=== PATIENT | male | born 1935 | race Caucasian/White ===

== ENCOUNTER 2017-06-11 09:39 | Inpatient (IN) | payer MEDICARE, OTHER ==
[~2017-06-11] VITALS: Ht 160 cm; Wt 53.8 kg
[~2017-06-11 09:39] MED LIST: ARICEPT10 M1 PO; ATROVENT 0.02%2.5 ML; K-DUR20 ME1 PO; PROTONIX40 M1 PO; RANEXA500 MG PO; XOPENEX0.63 MG/3 IH; Z.0.FUROSEMIDE40 MG PO; Z.0.LISINOPRIL5 MG PO; Z.0.METOPROLOL SUCC2 PO; Z.0.NITROSTAT0.4 MG; Z.0.PLAVIX75 MG PO; Z.0.PREDNISONE20 MG PO; Z.0.SIMVASTATIN20 MG PO; Z.0.TENORMIN50 MG PO; Z.1.DOXYCYCLINE HY10 PO
[2017-06-11 09:57] LABS: BASOPHILS % 0.5 % (0.0-1.0); HEMOGLOBIN 12.6 g/dL (14.0-18.0); LYMPHOCYTES # (AUTO) 0.7 (1.0-3.2); LYMPHOCYTES % 10.7 % (18.0-39.1); MEAN CORPUSCULAR HEMOGLOBIN 31.7 pg (28-32); MEAN CORPUSCULAR HGB CONC 33.2 g/dL (31-35); MEAN CORPUSCULAR VOLUME 95.5 fL (81-99); MONOCYTES # (AUTO) 0.5 (0.2-0.8); MONOCYTES % 7.5 % (4.4-11.3); NEUTROPHILS % 80.8 % (38.7-80.0); PLATELET COUNT 230 x10e3/uL (140-360); RED BLOOD COUNT 3.98 x10e6/uL (4.3-5.7)
[2017-06-11 10:15] LABS: INR 1.1; PARTIAL THROMBOPLASTIN TIME 28.4 seconds (23.8-35.5); PROTHROMBIN TIME 13.4 seconds (11.9-14.5)
[2017-06-11 10:24] LABS: ALBUMIN 3.8 g/dL (3.5-5.0); ANION GAP 17.1 mmol/L (8-16); CALCIUM 9.3 mg/dL (8.4-10.2); CREATININE, SERUM 1.97 mg/dL (0.72-1.25); POTASSIUM 4.1 mmol/L (3.5-5.1)
[2017-06-11 10:26] LABS: CREATINE KINASE MB 5.3 ng/mL (0-5.0)
--- NOTE | 2017-06-11 11:02 | Diagnostic Imaging Report ---
EXAM: XR CHEST 2 VIEWS DATE: 06/11/2017 9:49 AM INDICATION: COMPARISON: 06/04/2015 FINDINGS: Lines and Tubes: None Heart and Mediastinum: The heart is not enlarged. Sternotomy wires and aortic vascular calcification stable. Lungs and Pleura: No pneumothorax. Ill-defined opacities left mid and lower lung and right lung base, not seen previous study. Bones and Soft Tissues: No acute findings. IMPRESSION: 1. Ill-defined opacities in the mid and lower lungs, asymmetric to the left, not seen previous study. Developing pneumonia should be considered. Follow-up recommended. Signed by: Dr. Bogdan Garcia MD on 06/11/2017 10:59 AM
[2017-06-11] MEDS ORDERED: SODIUM CHLORIDE 0.9% 1000ML 1,000 ML IV SCH (11:30)
--- OUTSIDE RECORDS SUMMARY | 2017-06-11 12:17 | XMS REPORT ---
Author Author [facility] Address Unknown Phone Unavailable Care Team Providers Care Optimization Manager Name Role Phone CHARITO HUA Unavailable Unavailable Problems This patient has no known problems. Allergies, Adverse Reactions, Alerts This patient has no known allergies or adverse reactions. Medications This patient has no known medications. Results Test Description Test Time Test Comments Text Results Atomic Results Result Comments CHEST 2 VIEWS [place] [address] Patient Name: TIMOTHY RODGERS MR #: [id number] : 1935 Age/Sex: 82/M Req #: [id number] Adm Physician: Ordered by: CHARITO HUA MD Report #: [id number] Location: ER Room/Bed: Procedure: [id number] DX/CHEST 2 VIEWS Exam Date: 06/11/17 Exam Time : 1041 REPORT STATUS: Signed EXAM: XR CHEST 2 VIEWS DATE: 2017 9:49 AM INDICATION: COMPARISON: 06/04/2015 FINDINGS: Lines and Tubes: None Heart and Mediastinum: The heart is not enlarged. Sternotomy wires and aortic vascular calcification stable. Lungs and Pleura: No pneumothorax. Ill-defined opacities left mid and lower lung and right lung base, not seen previous study. Bones and Soft Tissues: No acute findings. IMPRESSION: 1. Ill-defined opacities in the mid and lower lungs, asymmetric to the left, not seen previous study. Developing pneumonia should be considered. Follow-up recommended. Signed by: Dr. Bogdan Tatum MD on 06/11/2017 10:59 AM Dictated By: BOGDAN TATUM MD [id number] Transcribed By: JOSE on 06/11/17 1052 COPY TO: CHARITO HUA MD
[2017-06-11] MEDS: METHYLPREDNISOLONE SOD SUCC 40 MG/ML VIAL IV SCH ×2 (12:38→20:41)
[2017-06-11] MEDS: AZITHROMYCIN 250 MG TAB PO SCH (12:38)
[2017-06-11] MEDS: CEFTRIAXONE SOD 1 GM VIAL IV SCH (12:38)
[2017-06-11] MEDS: ALBUTEROL/IPRATROPIUM 3 ML NEB NEB SCH ×3 (13:00→18:40)
[2017-06-11 13:47] VITALS: BP 121/80
[2017-06-11] MEDS ORDERED: ASPIRIN325 MG PO (13:52)
[2017-06-11] MEDS ORDERED: NITROGLYCERIN 0.4 MG SUBL SL PRN (14:00)
[2017-06-11 14:16] VITALS: BP 121/80
[2017-06-11 15:40] VITALS: BP 128/74
[2017-06-11] MEDS: FUROSEMIDE 40 MG TAB PO SCH (17:00)
[2017-06-11] MEDS: RANOLAZINE 500 MG TABSR PO SCH (17:00)
[2017-06-11] MEDS: POTASSIUM CHLORIDE 20 MEQ TAB CR PO SCH (17:00)
[2017-06-11] MEDS: IPRATROPIUM BROMIDE 0.02% 2.5 ML NEB INH SCH (18:40)
[2017-06-11 19:04] LABS: CREATINE KINASE MB 5.1 ng/mL (0-5.0)
[2017-06-11 20:00] VITALS: BP 119/61
[2017-06-11 22:12] VITALS: BP 119/61
[2017-06-12] VITALS (8 sets, daily range): BP systolic 117–157; BP diastolic 69–94
[2017-06-12] MEDS: IPRATROPIUM BROMIDE 0.02% 2.5 ML NEB INH SCH ×3 (01:00→14:45)
[2017-06-12] MEDS: ALBUTEROL/IPRATROPIUM 3 ML NEB NEB SCH ×4 (01:00→19:30)
--- NOTE | 2017-06-12 02:41 | Consultation ---
DATE OF CONSULTATION: June 11, 2017 REASON FOR CONSULTATION: Shortness of breath. HPI: Mr. Lovell is an 82-year-old male who presented to the emergency room with worsening shortness of breath. Patient received IV steroids and IV antibiotic shot at Dr. Castano's office last week, but the symptoms did improving. He started having worsening shortness of breath. He decided to come to the emergency room. He denies any chest pain, nausea, vomiting, or diarrhea. During his previous admission in December of 2015, he was seen by Dr. Rodrigues, and his EF in May of 2015 was 35% to 40%. He has a history of coronary artery disease and COPD. He has almost a [id number] smoking history. Quit 10 years ago. REVIEW OF SYSTEMS GENERAL: Was having fever and chills. HEENT: Head: Denies any head trauma or head injury. Denies any earache, nosebleed, throat pain. CV: Denies any chest pain. RESPIRATORY: Shortness of breath. GI: Denies any nausea or vomiting. The rest of the review systems are negative except as in HPI. PAST MEDICAL HISTORY: COPD, coronary artery disease, hypertension, CABG, atrial fibrillation, CKD. PAST SURGICAL HISTORY: IA with PCI and CABG. FAMILY HISTORY: Positive for coronary artery disease. SOCIAL HISTORY: He quit smoking a year ago. Smoked for 55+ years. Denies any alcohol use. PHYSICAL EXAMINATION VITAL SIGNS: Temperature 97, pulse of 90, blood pressure 128/74, respiratory rate of 18, O2 sat 96% on 2 L SKIN: Warm and dry. GENERAL: He is an elderly male in mild respiratory distress. HEENT: Head is atraumatic and normocephalic. Pupils are reactive. NECK: Supple. CHEST: Markedly reduced air entry. HEART: S1 and S2 audible. ABDOMEN: Soft, nontender and nondistended. EXTREMITIES: No clubbing, cyanosis or edema. NEUROLOGICAL: Awake and alert. LABS: White count of 6000, hemoglobin 12.6 and platelets 230,000. Chemistry: Sodium 141, potassium 4.1 chloride 104, BUN 44, creatinine 1.9. AST and ALT normal. BNP 1189. Chest x-ray: I have reviewed the images. No focal infiltrate or hyperinflation. ASSESSMENT AND PLAN: Mr. Lovell is an 82-year-old male who presented with worsening shortness of breath, likely acute exacerbation of chronic obstructive pulmonary disease, possibility of acute decompensated heart failure as patient has a high BNP, and also has a history of heart failure. PLAN 1. Agree with IV Solu-Medrol. 2. Nebulizer treatment as ordered every 6 hours. 3. Continue the patient on Lasix 40 mg p.o. b.i.d. 4. Oxygen as needed to keep the O2 sat more than or equal to 92%. Job#: [id number] MARICARMEN
[2017-06-12] MEDS: METHYLPREDNISOLONE SOD SUCC 40 MG/ML VIAL IV SCH ×3 (06:02→16:28)
--- NOTE | 2017-06-12 06:59 | Diagnostic Imaging Report ---
EXAMINATION: CHEST SINGLE (PORTABLE) INDICATION: COPD. COMPARISON: 06/11/2017 and 06/04/2015 FINDINGS: TUBES and LINES: None. LUNGS: Hyperinflated lungs. Lungs are clear. There is mild prominence of the central pulmonary vasculature, consistent with pulmonary venous congestion. PLEURA: No pleural effusion or pneumothorax. HEART AND MEDIASTINUM: Cardiac size is moderately enlarged. There are atherosclerotic calcifications within the aorta. These findings are stable. Midline sternotomy wires consistent with prior CABG procedure BONES AND SOFT TISSUES: No acute osseous lesion. Soft tissues are unremarkable. UPPER ABDOMEN: No free air under the diaphragm. IMPRESSION: 1. Stable COPD. 2. Stable enlargement of the heart and central vascular congestion. Signed by: Dr. Danilo Sung M.D. on 06/12/2017 6:55 AM
[2017-06-12] MEDS ORDERED: PANTOPRAZOLE SODIUM 40 MG SUSPDR.PKT PO SCH (07:30)
[2017-06-12] MEDS: RANOLAZINE 500 MG TABSR PO SCH ×2 (07:45→16:29)
[2017-06-12] MEDS: ASPIRIN 325 MG TAB PO SCH (07:45)
[2017-06-12] MEDS: DONEPEZIL HCL 5 MG TAB PO SCH (07:45)
[2017-06-12] MEDS: PANTOPRAZOLE SOD 40 MG TABEC PO SCH (07:45)
[2017-06-12] MEDS: CLOPIDOGREL BISULFATE 75 MG TAB PO SCH (07:45)
[2017-06-12] MEDS: FUROSEMIDE 40 MG TAB PO SCH ×2 (07:45→16:28)
[2017-06-12] MEDS: POTASSIUM CHLORIDE 20 MEQ TAB CR PO SCH ×2 (07:45→16:28)
[2017-06-12] MEDS: METOPROLOL SUCCINATE 25 MG TAB XL PO SCH (07:46)
[2017-06-12 08:53] LABS: BASOPHILS % 0.1 % (0.0-1.0); HEMOGLOBIN 13.6 g/dL (14.0-18.0); LYMPHOCYTES # (AUTO) 0.5 (1.0-3.2); LYMPHOCYTES % 6.2 % (18.0-39.1); MEAN CORPUSCULAR HEMOGLOBIN 31.6 pg (28-32); MEAN CORPUSCULAR HGB CONC 33.2 g/dL (31-35); MEAN CORPUSCULAR VOLUME 95.3 fL (81-99); MONOCYTES # (AUTO) 0.1 (0.2-0.8); MONOCYTES % 1.8 % (4.4-11.3); NEUTROPHILS # (AUTO) 6.7 (2.1-6.9); NEUTROPHILS % 91.2 % (38.7-80.0); PLATELET COUNT 291 x10e3/uL (140-360); RED CELL DISTRIBUTION WIDTH 13.2 % (11.7-14.4)
[2017-06-12 09:13] LABS: ANION GAP 20.8 mmol/L (8-16); CALCIUM 9.7 mg/dL (8.4-10.2); CREATININE, SERUM 1.94 mg/dL (0.72-1.25); POTASSIUM 4.8 mmol/L (3.5-5.1)
[2017-06-12] MEDS: CEFTRIAXONE SOD 1 GM VIAL IV SCH (13:19)
[2017-06-12] MEDS: AZITHROMYCIN 250 MG TAB PO SCH (13:20)
[2017-06-12 14:04] LABS: CREATINE KINASE MB 9.3 ng/mL (0-5.0)
[2017-06-12 17:07] LABS: BAND NEUTROPHILS % (MANUAL) 1 %; LYMPHOCYTES % (MANUAL) 3 % (19-48); MONOCYTES % (MANUAL) 2 % (3.4-9.0); NEUTROPHILS % (MANUAL) 94 % (40-74)
[2017-06-12 17:09] LABS: PLATELET ESTIMATE ADEQUATE; PLATELET MORPHOLOGY COMMENT NORMAL
[2017-06-12 17:10] LABS: RBC MORPHOLOGY COMMENT NORMAL
--- NOTE | 2017-06-12 17:54 | Consultation ---
DATE OF CONSULTATION: June 12, 2017 REQUESTING PHYSICIAN: Dr. Casatno. REASON FOR CONSULTATION: CHF. HISTORY OF PRESENT ILLNESS: Mr. Lovell is an 82-year-old gentleman with past medical history as listed below who was brought in with complaints of shortness of breath. Patient reportedly became short of breath yesterday afternoon, which got pretty bad so the called 911 and he was brought to the hospital. He is short of breath at rest and on minimal exertion. Reportedly, he was seen at PCP's office this past , was given an antibiotic and steroid shot. He has some cough. No expectoration. No fever. Lot of the history is related by his who is at the bedside. REVIEW OF SYSTEMS CONSTITUTIONAL: Has fatigue and weakness. HEENT: No headache, blurry vision, seizures, or syncope. CARDIOVASCULAR: No chest pain. Had dyspnea. No orthopnea or PND. RESPIRATORY: Has cough. No expectoration or fever. GI: No abdominal pain, vomiting, or diarrhea. : No dysuria or frequency. ALLERGIES: No known drug allergies. MEDICATIONS: See list. PAST MEDICAL HISTORY 1. History of CAD and CABG. 2. History of COPD. 3. History of hypertension. 4. History of OH about 9 years back. 5. History of mild dementia. SOCIAL HISTORY: Does not smoke or drink. FAMILY HISTORY: Noncontributory. PHYSICAL EXAMINATION GENERAL: Moderately built and nourished gentleman, alert, oriented, not in any obvious distress. VITALS: Heart rate is 67, blood pressure 157/94, respiratory rate 16, and temperature 98.3. HEENT: Atraumatic. NECK: No JVD, bruit, thyromegaly, or lymphadenopathy. CARDIOVASCULAR: First and second heart sounds heard. A 2/6 systolic murmur heard at the left sternal border. CHEST: Decreased air entry at the bases. Midline surgical scar. ABDOMEN: Soft and nontender. EXTREMITIES: No edema. LABORATORY DATA: Sodium 141, potassium 4.8, chloride 103, bicarb 22, BUN is 44, creatinine 1.9, and glucose 130. Hemoglobin is 13.6, hematocrit is 41, platelets are 291, and white count is 7.3. BNP is 1189. IMPRESSION 1. Congestive heart failure. 2. Coronary artery disease, history of coronary artery bypass grafting. 3. Chronic obstructive pulmonary disease. 4. Hypertension. 5. Hyperlipidemia. PLAN 1. Continue with diuretics. 2. Patient is on antibiotics and steroids, can continue the same. 3. Patient's blood pressure is on the higher side; he is on metoprolol. We will continue to monitor. If it remains elevated, we will add additional medications. 4. Get echocardiogram to assess LV function and valvular function. 5. Further cardiac workup depending on clinical course. Discussed my impression, plan, and management with the patient and his . As always, I appreciate and thank you very much for referral. Job#: [id number] MACARENA
[2017-06-12] MEDS: SIMVASTATIN 20 MG TAB PO SCH (20:18)
[2017-06-13 00:20] VITALS: BP 125/80
[2017-06-13 04:00] VITALS: BP 112/63
[2017-06-13 07:32] LABS: CALCIUM 9.5 mg/dL (8.4-10.2); CHOL/HDL RATIO 3.7 (3.9-4.7); CREATININE, SERUM 2.22 mg/dL (0.72-1.25)
[2017-06-13] MEDS: ALBUTEROL/IPRATROPIUM 3 ML NEB NEB SCH ×4 (07:50→20:45)
[2017-06-13 08:33] VITALS: BP 121/76
[2017-06-13] MEDS: PANTOPRAZOLE SOD 40 MG TABEC PO SCH (08:59)
[2017-06-13] MEDS: METHYLPREDNISOLONE SOD SUCC 40 MG/ML VIAL IV SCH ×2 (08:59→17:18)
[2017-06-13] MEDS: DONEPEZIL HCL 5 MG TAB PO SCH (08:59)
[2017-06-13] MEDS: ASPIRIN 325 MG TAB PO SCH (08:59)
[2017-06-13] MEDS: POTASSIUM CHLORIDE 20 MEQ TAB CR PO SCH ×2 (09:00→17:18)
[2017-06-13] MEDS: FUROSEMIDE 40 MG TAB PO SCH ×2 (09:00→17:18)
[2017-06-13] MEDS: CLOPIDOGREL BISULFATE 75 MG TAB PO SCH (09:00)
[2017-06-13] MEDS: RANOLAZINE 500 MG TABSR PO SCH ×2 (09:00→17:18)
[2017-06-13] MEDS: METOPROLOL SUCCINATE 25 MG TAB XL PO SCH (09:00)
[2017-06-13] MEDS: CEFTRIAXONE SOD 1 GM VIAL IV SCH (11:59)
[2017-06-13] MEDS: AZITHROMYCIN 250 MG TAB PO SCH (11:59)
[2017-06-13 16:53] VITALS: BP 121/70
[2017-06-13 20:00] VITALS: BP 121/81
[2017-06-13] MEDS: SIMVASTATIN 20 MG TAB PO SCH (21:30)
[2017-06-13 22:15] VITALS: BP 121/81
[2017-06-14] VITALS: BP 119/63
[2017-06-14] MEDS: ALBUTEROL/IPRATROPIUM 3 ML NEB NEB SCH ×4 (01:00→19:15)
[2017-06-14 04:00] VITALS: BP 126/66
[2017-06-14 06:46] LABS: HEMATOCRIT 37.6 % (38.2-49.6); HEMOGLOBIN 12.7 g/dL (14.0-18.0); LYMPHOCYTES # (AUTO) 0.5 (1.0-3.2); LYMPHOCYTES % 4.9 % (18.0-39.1); MEAN CORPUSCULAR HEMOGLOBIN 31.5 pg (28-32); MEAN CORPUSCULAR HGB CONC 33.8 g/dL (31-35); MEAN CORPUSCULAR VOLUME 93.3 fL (81-99); MONOCYTES # (AUTO) 0.3 (0.2-0.8); MONOCYTES % 2.7 % (4.4-11.3); NEUTROPHILS # (AUTO) 8.4 (2.1-6.9); NEUTROPHILS % 91.2 % (38.7-80.0); PLATELET COUNT 254 x10e3/uL (140-360); RED BLOOD COUNT 4.03 x10e6/uL (4.3-5.7)
[2017-06-14 07:15] LABS: ANION GAP 18.6 mmol/L (8-16); CALCIUM 9.3 mg/dL (8.4-10.2); CREATININE, SERUM 2.2 mg/dL (0.72-1.25); MAGNESIUM 2.7 MG/DL (1.3-2.1); POTASSIUM 4.6 mmol/L (3.5-5.1)
[2017-06-14] MEDS: DONEPEZIL HCL 5 MG TAB PO SCH (08:34)
[2017-06-14] MEDS: METHYLPREDNISOLONE SOD SUCC 40 MG/ML VIAL IV SCH (08:34)
[2017-06-14] MEDS: PANTOPRAZOLE SOD 40 MG TABEC PO SCH (08:34)
[2017-06-14] MEDS: RANOLAZINE 500 MG TABSR PO SCH ×2 (08:35→16:51)
[2017-06-14] MEDS: METOPROLOL SUCCINATE 25 MG TAB XL PO SCH (08:35)
[2017-06-14] MEDS: POTASSIUM CHLORIDE 20 MEQ TAB CR PO SCH ×2 (08:35→16:51)
[2017-06-14] MEDS: ASPIRIN 325 MG TAB PO SCH (08:35)
[2017-06-14] MEDS: CLOPIDOGREL BISULFATE 75 MG TAB PO SCH (08:35)
[2017-06-14] MEDS: FUROSEMIDE 40 MG TAB PO SCH ×2 (08:35→16:51)
[2017-06-14 08:50] VITALS: BP 142/79
[2017-06-14] MEDS: CEFTRIAXONE SOD 1 GM VIAL IV SCH (11:31)
[2017-06-14] MEDS: AZITHROMYCIN 250 MG TAB PO SCH (11:31)
[2017-06-14 15:38] VITALS: BP 121/63
[2017-06-14 20:00] VITALS: BP 114/74
[2017-06-14] MEDS: SIMVASTATIN 20 MG TAB PO SCH (21:50)
[2017-06-14 22:33] VITALS: BP 121/63
[2017-06-15] VITALS: BP 107/59
[2017-06-15 04:00] VITALS: BP 116/69
[2017-06-15] MEDS: ALBUTEROL/IPRATROPIUM 3 ML NEB NEB SCH ×2 (07:00)
[2017-06-15 07:20] VITALS: BP 135/75
[2017-06-15] MEDS ORDERED: METHYLPREDNISOLONE SOD SUCC 40 MG/ML VIAL IV SCH (07:30)
[2017-06-15] MEDS: PANTOPRAZOLE SOD 40 MG TABEC PO SCH (07:45)
[2017-06-15 08:01] VITALS: BP 135/75
[2017-06-15] MEDS: RANOLAZINE 500 MG TABSR PO SCH (09:24)
[2017-06-15] MEDS: CLOPIDOGREL BISULFATE 75 MG TAB PO SCH (09:24)
[2017-06-15] MEDS: DONEPEZIL HCL 5 MG TAB PO SCH (09:24)
[2017-06-15] MEDS: METOPROLOL SUCCINATE 25 MG TAB XL PO SCH (09:24)
[2017-06-15] MEDS: FUROSEMIDE 40 MG TAB PO SCH (09:24)
[2017-06-15] MEDS: ASPIRIN 325 MG TAB PO SCH (09:24)
[2017-06-15] MEDS: POTASSIUM CHLORIDE 20 MEQ TAB CR PO SCH (09:24)
--- NOTE | 2017-07-31 09:08 | Discharge Summary ---
DISCHARGE DIAGNOSES: 1. Tsx-RN-aokqdqr-elevated myocardial infarction. 2. Acute on chronic systolic heart failure, ejection fraction 30%. 3. Chronic obstructive pulmonary disease. 4. Coronary artery disease. 5. Dementia. 6. Hypertension. 7. Atrial fibrillation. HISTORY OF PRESENT ILLNESS AND HOSPITAL COURSE: See hospital chart for full details. The patient is an elderly gentleman who presented with chest pain and was found to have a dfy-SJ-uxvvnuy-elevated AL as well as acute on chronic CHF, who was brought in, was optimized with medical management. He was seen by Cardiology. Please see their note for full details. 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 Please see hospital chart for full details. CARLOS ALBERTO PEARCE MD Job#: [id number] EV
== END 2017-06-15 11:00 | disposition home or self-care (01) | DRG 291 ==
LOC: ER 09:39 → ERHOLD 12:14 → MED/SURG3 12:16
PROVIDERS: ADMIT Internal Medicine; ATTEND Internal Medicine
DX: I13.0 Hypertensive heart and chronic kidney disease with heart failure and stage 1 through stage 4 chronic kidney disease, or unspecified chronic kidney disease (principal); I50.23 Acute on chronic systolic (congestive) heart failure; J44.1 Chronic obstructive pulmonary disease with (acute) exacerbation; N18.9 Chronic kidney disease, unspecified; R09.02 Hypoxemia; I25.10 Atherosclerotic heart disease of native coronary artery without angina pectoris; Z95.1 Presence of aortocoronary bypass graft; I25.2 Old myocardial infarction; E78.5 Hyperlipidemia, unspecified; I48.91 Unspecified atrial fibrillation; Z87.891 Personal history of nicotine dependence
CPT/HCPCS: 36415; 71045; 71046; 80048; 80053; 80061; 82550; 82553; 83036; 83735; 83880; 84484; 85025; 85610; 85730; 93005; 93306; 94640; 97139; 99285; J0696; J2920; J7030

== ENCOUNTER 2017-06-27 03:55 | Inpatient (IN) | payer MEDICARE ==
[~2017-06-27] VITALS: Ht 160 cm; Wt 54.0 kg
[~2017-06-27 03:55] MED LIST changes: +ASPIRIN325 MG PO
--- OUTSIDE RECORDS SUMMARY | 2017-06-27 03:57 | XMS REPORT | Continuity of Care Document ---
Author Author [facility] Organization [facility] Address [address] [place] [address] Phone Unavailable Care Team Providers Care Tying In Machine Operator Name Role Phone CARLOS ALBERTO PEARCE MD PCP Insurance Providers Guarantor Timothy Rodgers Address [address] [place] [address] Email [email or web address] Payer [facility] Policy Number [id number] Subscriber's Name Timothy Rodgers Relationship 18 Self / Same As Patient Group Number [id number] Group Name RETIRED Effective Date 17 Advance Directives Directive Response Recorded Date/Time Does the patient have an advance directive? No 06/11/17 1:42pm If yes, is advance directive on file with [facility]? No 06/11/17 1:42pm If not on file with [facility] will patient provide a copy? No 06/11/17 1:42pm Do you have a Directive to Physician? No 06/11/17 9:42am Do you have a Medical Power of In Flight Refueling Craftsman? No 06/11/17 9:42am Do you have an out of hospital Do Not Resuscitate Order? No 06/11/17 9:42am Do you have any special needs we should be aware of? No 06/11/17 9:42am Do you have a support person here with you today? Yes 06/11/17 9:42am Did patient receive Notice of Privacy Practices? Yes 06/11/17 9:42am Did patient receive patient rights and responsibilities? Yes 06/11/17 9:42am Problems Medical Problem Onset Date Status Bradyarrhythmia 2016 Acute Chest pain 2016 Acute Pneumonia 06/02/2015 Acute Sick sinus syndrome 2016 Acute Medications Current Home Medications Medication Dose Units Route Directions Days Qty Instructions Start Date Aspirin 325 Mg Tablet 325 Mg Oral Daily 30 Tab Clopidogrel Bisulfate (Plavix) 75 Mg Tablet 75 Mg Oral Daily Donepezil Hcl (Aricept) 10 Mg Tablet 10 Mg Oral Daily Furosemide 40 Mg Tablet 40 Mg Oral Twice A Day Ipratropium [place] (Atrovent 0.02% Neb) 2.5 Ml Soln Every 6 Hours Metoprolol Succinate 25 Mg Tab.sr.24h 25 Mg Oral Daily Nitroglycerin (Nitrostat) 0.4 Mg Tab.subl As Directed Pantoprazole Sodium (Protonix) 40 Mg Suspdr.pkt 40 Mg Oral Daily Potassium Chloride (K-Dur) 20 Meq Tabcr 20 Meq Oral Twice A Day Ranolazine (Ranexa) 500 Mg Tabsr 500 Mg Oral Twice A Day 60 Tab Simvastatin 20 Mg Tablet 20 Mg Oral Daily Past Home Medications Medication Directions Ordered Status Levalbuterol Hcl (Xopenex) 0.63 Mg/3 Ml Vial.neb, Inhalation As Needed Discontinued Lisinopril 5 Mg Tablet, 5 Mg Oral Daily Discontinued Social History Social History Problem Response Recorded Date/Time Onset Date Status Hx Psychiatric Problems No 06/11/2017 1:42pm Not Applicable Not Applicable Hx Eating Disorder No 06/11/2017 1:42pm Not Applicable Not Applicable Hx Substance Use Disorder No 06/11/2017 1:42pm Not Applicable Not Applicable Hx Depression No 06/11/2017 1:42pm Not Applicable Not Applicable Hx Alcohol Use No 06/11/2017 1:42pm Not Applicable Not Applicable Hx Substance Use Treatment No 06/11/2017 1:42pm Not Applicable Not Applicable Hx Physical Abuse No 06/11/2017 1:42pm Not Applicable Not Applicable Smoking Status Start Date Stop Date Former smoker Hospital Discharge Instructions No hospital discharge instruction information available. Plan of Care Discharge Date 06/15/17 11:00am Disposition HOME, SELF-CARE Instructions/Education Provided Pneumonia - Bacterial Prescriptions See Medication Section Additional Instructions/Education LOW SALT DIET AND FOLLOW UP IN [address] PEARCE ACTIVITY TOLERATED FOLLOW UP IN 1-[address] MCNAIR AT [phone] Functional Status Query Response Date Recorded FUNCTIONAL STATUS ` June 11, 2017 3:03pm Assistive Devices None June 11, 2017 2:16pm Ambulation Ability Independent June 11, 2017 2:16pm Toileting Ability Independent June 15, 2017 9:24am Allergies, Adverse Reactions, Alerts Allergen Type Severity Reaction Status Last Updated No Known Drug Allergies Allergy Unknown Active 06/12/08 Immunizations No immunization information available. Vital Signs Acute Vital Signs Vital Response Date/Time Temperature (Fahrenheit) 97.0 degrees F (97.6 - 99.5) 06/15/2017 8:01am Pulse Pulse Rate (adult) 69 bpm (60 - 90) 06/15/2017 8:35am Respiratory Rate 18 bpm (12 - 24) 06/15/2017 8:35am Blood Pressure 135/75 mm Hg 06/15/2017 8:01am Height 5 ft 3 in 06/11/2017 1:49pm Weight 118.50 lb 06/15/2017 12:00am Body Mass Index 21.0 kg/m^2 06/15/2017 12:00am Results Laboratory Results Test Name Result Units Flags Reference Collection Date/Time Result Date/ Time Comments White Blood Count 9.22 x10e3/uL 4.8-10.8 06/14/2017 6:21am 06/14/2017 6 :48am Red Blood Count 4.03 x10e6/uL L 4.3-5.7 06/14/2017 6:21am 06/14/2017 6: 48am Hemoglobin 12.7 g/dL L 14.0-18.0 06/14/2017 6:21am 06/14/2017 6:48am Hematocrit 37.6 % L 38.2-49.6 06/14/2017 6:21am 06/14/2017 6:48am Mean Corpuscular Volume 93.3 fL 81-99 06/14/2017 6:06/14/2017 6: 48am Mean Corpuscular Hemoglobin 31.5 pg 28-32 06/14/2017 6:06/14/2017 6:48am Mean Corpuscular Hemoglobin Concent 33.8 g/dL 31-35 06/14/2017 6:06/14/2017 6:48am Red Cell Distribution Width 13.0 % 11.7-14.4 06/14/2017 6:2017 6:48am Platelet Count 254 x10e3/uL 140-360 06/14/2017 6:06/14/2017 6: 48am Neutrophils (%) (Auto) 91.2 % H 38.7-80.0 06/14/2017 6:06/14/2017 6 :48am Lymphocytes (%) (Auto) 4.9 % L 18.0-39.1 06/14/2017 6:06/14/2017 6: 48am Monocytes (%) (Auto) 2.7 % L 4.4-11.3 06/14/2017 6:06/14/2017 6: 48am Eosinophils (%) (Auto) 0.0 % 0.0-6.0 06/14/2017 6:06/14/2017 6: 48am Basophils (%) (Auto) 0.0 % 0.0-1.0 06/14/2017 6:06/14/2017 6:48am IM GRANULOCYTES % 1.2 % H 0.0-1.0 06/14/2017 6:06/14/2017 6:48am Neutrophils # (Auto) 8.4 H 2.1-6.9 06/14/2017 6:06/14/2017 6: 48am Lymphocytes # (Auto) 0.5 L 1.0-3.2 06/14/2017 6:06/14/2017 6: 48am Monocytes # (Auto) 0.3 0.2-0.8 06/14/2017 6:06/14/2017 6:48am Eosinophils # (Auto) 0.0 0.0-0.4 06/14/2017 6:06/14/2017 6:48am Basophils # (Auto) 0.0 0.0-0.1 06/14/2017 6:06/14/2017 6:48am Absolute Immature Granulocyte (auto 0.11 x10e3/uL H 0-0.1 06/14/2017 6: 06/14/2017 6:48am Differential Total Cells Counted 100 06/12/2017 7:06/12/2017 5 :10pm Neutrophils % (Manual) 94 % H 40-74 06/12/2017 7:06/12/2017 5:10pm Band Neutrophils % 1 % 06/12/2017 7:06/12/2017 5:10pm Lymphocytes % (Manual) 3 % L 19-48 06/12/2017 7:06/12/2017 5:10pm Monocytes % (Manual) 2 % L 3.4-9.0 06/12/2017 7:06/12/2017 5:10pm Platelet Estimate ADEQUATE 06/12/2017 7:06/12/2017 5:10pm Platelet Morphology Comment NORMAL 06/12/2017 7:06/12/2017 5: 10pm Red Cell Morphology Comment NORMAL 06/12/2017 7:06/12/2017 5: 10pm Prothrombin Time 13.4 seconds 11.9-14.5 06/11/2017 9:4006/11/2017 10 :19am Prothromb Time International Ratio 1.10 06/11/2017 9:402017 10:19am Oral Anticoagulant Therapy INR Values: 1. Low Intensity Therapy 1.5 - 2.0 2. Moderate Intensity Therapy 2.0 - 3.0 3. High Intensity Therapy(1) 2.5 - 3.5 4. High Intensity Therapy(2) 3.0 - 4.0 5. Panic Value INR > 5.0 Activated Partial Thromboplast Time 28.4 seconds 23.8-35.5 06/11/2017 9: 4006/11/2017 10:19am Sodium Level 140 mmol/L 136-145 06/14/2017 6:06/14/2017 7:20am Potassium Level 4.6 mmol/L 3.5-5.1 06/14/2017 6:06/14/2017 7:20am Chloride Level 103 mmol/L 98-107 06/14/2017 6:06/14/2017 7:20am Carbon Dioxide Level 23 mmol/L 22-29 06/14/2017 6:06/14/2017 7: 20am Anion Gap 18.6 mmol/L H 8-16 06/14/2017 6:06/14/2017 7:20am Blood Urea Nitrogen 74 mg/dL H 7-06/14/2017 6:06/14/2017 7:20am Creatinine 2.20 mg/dL H 0.72-1.25 06/14/2017 6:06/14/2017 7:20am BUN/Creatinine Ratio 34 H 6-06/14/2017 6:06/14/2017 7:20am Estimat Glomerular Filtration Rate 29 ML/MIN L 60- 06/14/2017 6: 7:20am Ranges were taken from the National Kidney Disease Education Program and the National Kidney Foundation literature. Reference ranges: 60 or greater: Normal 16-59 (for 3 consecutive months): Chronic kidney disease 15 or less: Kidney failure Glucose Level 107 mg/dL 74-118 06/14/2017 6:06/14/2017 7:20am Calcium Level 9.3 mg/dL 8.4-10.2 06/14/2017 6:06/14/2017 7:20am Hemoglobin A1c Percent 5.0 % 4.0-7.0 06/13/2017 6:31am 06/13/2017 7: 19am Magnesium Level 2.7 MG/DL H 1.3-2.1 06/14/2017 6:06/14/2017 7:20am Total Bilirubin 0.3 mg/dL 0.2-1.2 06/11/2017 9:40am 06/11/2017 10:32am Aspartate Amino Transf (AST/SGOT) 21 IU/L 5-34 06/11/2017 9:40am 2017 10:32am Alanine Aminotransferase (ALT/SGPT) 12 IU/L 0-55 06/11/2017 9:40am 10:32am Total Protein 7.5 g/dL 6.5-8.1 06/11/2017 9:40am 06/11/2017 10:32am Albumin 3.8 g/dL 3.5-5.0 06/11/2017 9:40am 06/11/2017 10:32am Globulin 3.7 g/dL H 2.3-3.5 06/11/2017 9:40am 06/11/2017 10:32am Albumin/Globulin Ratio 1.0 0.8-2.0 06/11/2017 9:40am 06/11/2017 10: 32am Alkaline Phosphatase 87 IU/L 40-150 06/11/2017 9:40am 06/11/2017 10: 32am Triglycerides Level 90 MG/DL 0-149 06/13/2017 6:31am 06/13/2017 7:32am Cholesterol Level 142 MD/DL 0-199 06/13/2017 6:31am 06/13/2017 7:32am Less than 200 mg/dL Low Risk 201 - 239 mg/dL Borderline Risk 240 mg/dl and greater High Risk LDL Cholesterol 86 MG/DL 60-130 06/13/2017 6:31am 06/13/2017 7:32am HDL Cholesterol 38 MG/DL L 40-60 06/13/2017 6:31am 06/13/2017 7:32am Cholesterol/HDL Ratio 3.7 L 3.9-4.7 06/13/2017 6:31am 06/13/2017 7: 32am B-Type Natriuretic Peptide 1189.8 pg/mL H 0-100 06/11/2017 9:40am 2017 10:37am Creatine Kinase 127 IU/L 30-200 06/12/2017 7:22am 06/12/2017 2:02pm Creatine Kinase MB 9.30 ng/mL H 0-5.0 06/12/2017 7:22am 06/12/2017 2: 06pm Troponin I 0.653 ng/mL H 0-0.300 06/12/2017 7:22am 06/12/2017 2:06pm Procedures Procedure Status Date Provider(s) X-ray of chest, two views Active 06/11/17 CHARITO HUA MD Encounters Encounter Location Arrival/Admit Date Discharge/Depart Date Attending Provider Discharged Inpatient [facility] 06/11/17 12:14pm 11:00am CARLOS ALBERTO PEARCE MD
[2017-06-27] MEDS ORDERED: MYBETRIC PO (04:13)
[2017-06-27] MEDS ORDERED: ALLOPURINOL300 MG PO (04:13)
[2017-06-27 04:20] LABS: BASOPHILS # (AUTO) 0.1 (0.0-0.1); BASOPHILS % 0.5 % (0.0-1.0); EOSINOPHILS # (AUTO) 0.2 (0.0-0.4); EOSINOPHILS % 1.7 % (0.0-6.0); HEMATOCRIT 38.2 % (38.2-49.6); HEMOGLOBIN 12.4 g/dL (14.0-18.0); LYMPHOCYTES # (AUTO) 1.3 (1.0-3.2); LYMPHOCYTES % 13.6 % (18.0-39.1); MEAN CORPUSCULAR HGB CONC 32.5 g/dL (31-35); MEAN CORPUSCULAR VOLUME 95.5 fL (81-99); MONOCYTES # (AUTO) 0.4 (0.2-0.8); MONOCYTES % 4.1 % (4.4-11.3); NEUTROPHILS # (AUTO) 7.6 (2.1-6.9); NEUTROPHILS % 79.7 % (38.7-80.0); PLATELET COUNT 228 x10e3/uL (140-360)
[2017-06-27 04:24] LABS: PROTHROMBIN TIME 12.4 seconds (11.9-14.5)
[2017-06-27 04:24] LABS: BILIRUBIN,URINE NEGATIVE (NEGATIVE); KETONES,URINE NEGATIVE (NEGATIVE); LEUKOCYTE ESTERASE ,URINE NEGATIVE (NEGATIVE); NITRITE,URINE NEGATIVE (NEGATIVE); PROTEIN,URINE DIPSTICK NEGATIVE (NEGATIVE); URINE UROBILINOGEN 0.2 mg/dL (0.2 - 1)
[2017-06-27 04:25] LABS: PARTIAL THROMBOPLASTIN TIME 20.3 seconds (23.8-35.5)
[2017-06-27 04:27] LABS: CLARITY,URINE CLEAR (CLEAR); COLOR,URINE YELLOW (YELLOW)
[2017-06-27 04:34] LABS: ALBUMIN 3.1 g/dL (3.5-5.0); ALBUMIN/GLOBULIN RATIO 0.8 (0.8-2.0); ANION GAP 16.9 mmol/L (8-16); CALCIUM 8.7 mg/dL (8.4-10.2); CREATININE, SERUM 1.91 mg/dL (0.72-1.25); MAGNESIUM 2.2 MG/DL (1.3-2.1); POTASSIUM 4.9 mmol/L (3.5-5.1)
[2017-06-27 04:35] LABS: WBC,URINE (MAN) 0-5 /HPF (0-5)
[2017-06-27 04:36] LABS: EPITHELIAL CELLS,URINE RARE /LPF; RBC,URINE 0-5 /HPF (0-5)
[2017-06-27 04:41] LABS: CREATINE KINASE MB 26.8 ng/mL (0-5.0)
[2017-06-27 04:43] LABS: B-TYPE NATRIURETIC PEPTIDE2 1207.1 pg/mL (0-100)
[2017-06-27] MEDS ORDERED: ASPIRIN 81 MG CHEW TAB PO ONE (05:00)
[2017-06-27] MEDS ORDERED: HEPARIN SOD (PORCINE) 5,000 UNIT/ML VIAL IV ONE (05:15)
[2017-06-27] MEDS ORDERED: METHYLPREDNISOLONE SOD SUCC 125 MG/2ML VIAL IV STA (05:20)
[2017-06-27] MEDS: HEPARIN 25,000U/0.45% NS 250ML 700 UNIT in SODIUM CHLORIDE 0.9% 250ML 0 ML IV SCH (05:33)
[2017-06-27] MEDS ORDERED: NITROGLYCERIN 0.4 MG SUBL SL PRN (05:45)
[2017-06-27] MEDS ORDERED: MORPHINE SULFATE 2 MG/ML SYR IV PRN (05:45)
[2017-06-27 06:15] VITALS: BP 132/87
[2017-06-27] MEDS: ONDANSETRON HCL INJ 2 MG/ML VIAL IV PRN (06:20)
[2017-06-27 06:43] VITALS: BP 132/87
--- NOTE | 2017-06-27 06:44 | Diagnostic Imaging Report ---
EXAMINATION: CHEST SINGLE (PORTABLE) INDICATION: Shortness of breath COMPARISON: 06/12/2017 FINDINGS: TUBES and LINES: None. LUNGS: Lungs are not well inflated. Mild interlobular septal thickening is present There is mild prominence of the central pulmonary vasculature, consistent with pulmonary venous congestion. PLEURA: No pleural effusion or pneumothorax. HEART AND MEDIASTINUM: Cardiac size is mildly enlarged. There are atherosclerotic calcifications within the aorta. Postsurgical changes related to prior CABG. Midline sternotomy wires are intact. BONES AND SOFT TISSUES: No acute osseous lesion. Soft tissues are unremarkable. UPPER ABDOMEN: No free air under the diaphragm. IMPRESSION: Findings are compatible with early cardiogenic pulmonary edema. Signed by: Dr. Danilo Sung M.D. on 06/27/2017 6:40 AM
[2017-06-27 08:11] VITALS: BP 144/78
[2017-06-27] MEDS ORDERED: FUROSEMIDE INJ 10 MG/ML 4 ML VIAL IV SCH ×2 (08:15)
[2017-06-27] MEDS: FUROSEMIDE INJ 10 MG/ML 4 ML VIAL IV SCH ×2 (08:32→21:25)
[2017-06-27] MEDS: FAMOTIDINE 20 MG/2 ML VIAL IV SCH ×2 (08:35→21:25)
[2017-06-27] MEDS: CLOPIDOGREL BISULFATE 75 MG TAB PO SCH (08:35)
[2017-06-27] MEDS: ASPIRIN 325 MG TAB EC PO SCH (08:35)
[2017-06-27] MEDS: METOPROLOL TARTRATE 25 MG TAB PO SCH ×3 (08:36→20:04)
--- NOTE | 2017-06-27 09:28 | Consultation ---
DATE OF CONSULTATION: June 27, 2017 CARDIOLOGY CONSULTATION REASON FOR CONSULT: Elevated troponin. HISTORY OF PRESENT ILLNESS: Mr. Lovell is an 82-year-old gentleman with a past medical history as listed below presented with complaints of shortness of breath. The patient reportedly became short of breath yesterday, which got progressively worse. He was brought to the hospital. The patient denies any chest pain or palpitations. No cough, fever or expectoration. The patient was recently admitted to the hospital with CHF and was discharged home. He was supposed to follow up with Dr. Sam Owusu. Apparently, he has not seen him as yet. REVIEW OF SYSTEMS CONSTITUTIONAL: Has some fatigue and weakness. HEENT: No headache, blurring of vision, seizures, or syncope. CARDIOVASCULAR: No chest pain. Had dyspnea. Has some orthopnea. No PND. RESPIRATORY: No cough, fever, expectoration. GI: No abdominal pain, vomiting, diarrhea. : No dysuria, frequency or incontinence. ALLERGIES: NO KNOWN DRUG ALLERGIES. MEDICATIONS: See list. PAST MEDICAL HISTORY: History of CAD, status post CABG, history of COPD, history of hypertension, history of MD about 9 years back, history of mild dementia, history of CHF. SOCIAL HISTORY: Does not smoke or drink. FAMILY HISTORY: Noncontributory. PHYSICAL EXAMINATION GENERAL: Moderately built and nourished gentleman awake, alert and not in any obvious distress. VITALS: Heart rate is 99, blood pressure 132/87, respiratory rate 18, temperature 97. HEENT: Atraumatic. NECK: No JVD, bruits, thyromegaly, or lymphadenopathy. CARDIOVASCULAR: First and 2nd heart sounds heard. No murmurs, rubs or gallops appreciated. CHEST: Decreased air entry at the bases. No adventitious sounds appreciated. Midline surgical scar. ABDOMEN: Soft and nontender. EXTREMITIES: No edema. LABS: Sodium is 137, potassium 4.9, chloride 105, bicarb 20, BUN 43, creatinine 1.9, glucose 100. Hemoglobin is 12.4, hematocrit 38.2 and platelets 228,000. White count is 9.5. EKG shows sinus tachycardia at 111 beats per minute, left axis deviation, right bundle branch block, PVCs, Q-waves in inferior leads, nonspecific ST-T changes. Chest x-ray findings compatible with early cardiogenic pulmonary edema. IMPRESSION 1. Congestive heart failure. 2. Kzt-NF-yyvjzsnko myocardial infarction. 3. Coronary artery disease with history of coronary artery bypass graft. 4. History of hypertension. 5. History of chronic obstructive pulmonary disease. 6. History of dementia. 7. Renal failure. PLAN 1. IV diuresis. 2. He had an echocardiogram done recently. Will review this report. 3. Start him on low-dose beta blockers. 4. He has been started on IV heparin. Can continue the same. 5. Diuretics have potentially worsened his renal failure, but he has congestion and is short of breath. 6. Discussed about possible cardiac catheterization. The patient and family at current time do not want it. 7. Continue with medical management for now. 8. No EDEN inhibitors due to renal failure. As always, I appreciate and thank you very much for this referral. Job#: [id number] MARICARMEN
[2017-06-27 10:30] LABS: CREATINE KINASE MB 75.2 ng/mL (0-5.0)
[2017-06-27] MEDS: LEVALBUTEROL HCL SOLN NEBU 0.63 MG/3 ML NEB INH PRN ×3 (10:30→20:15)
[2017-06-27] MEDS: IPRATROPIUM BROMIDE 0.02% 2.5 ML NEB NEB PRN ×3 (10:31→20:15)
[2017-06-27 12:03] VITALS: BP 104/64
[2017-06-27 16:16] VITALS: BP 114/65
[2017-06-27 19:37] LABS: CREATINE KINASE MB 76.8 ng/mL (0-5.0)
[2017-06-28] VITALS (8 sets, daily range): BP systolic 97–114; BP diastolic 49–66
[2017-06-28 06:25] LABS: BASOPHILS % 0.1 % (0.0-1.0); HEMATOCRIT 34.9 % (38.2-49.6); HEMOGLOBIN 11.6 g/dL (14.0-18.0); LYMPHOCYTES # (AUTO) 0.6 (1.0-3.2); LYMPHOCYTES % 6.3 % (18.0-39.1); MEAN CORPUSCULAR HEMOGLOBIN 31.5 pg (28-32); MEAN CORPUSCULAR HGB CONC 33.2 g/dL (31-35); MEAN CORPUSCULAR VOLUME 94.8 fL (81-99); MONOCYTES # (AUTO) 0.4 (0.2-0.8); NEUTROPHILS % 88.9 % (38.7-80.0); PLATELET COUNT 255 x10e3/uL (140-360); RED BLOOD COUNT 3.68 x10e6/uL (4.3-5.7); RED CELL DISTRIBUTION WIDTH 12.9 % (11.7-14.4)
[2017-06-28 06:49] LABS: CREATINE KINASE MB 56.9 ng/mL (0-5.0)
[2017-06-28 07:04] LABS: ALBUMIN 3.3 g/dL (3.5-5.0); ALBUMIN/GLOBULIN RATIO 0.9 (0.8-2.0); ANION GAP 16.1 mmol/L (8-16); CALCIUM 9.3 mg/dL (8.4-10.2); CHOL/HDL RATIO 3.1 (3.9-4.7); CREATININE, SERUM 1.96 mg/dL (0.72-1.25); POTASSIUM 5.1 mmol/L (3.5-5.1)
[2017-06-28] MEDS: FUROSEMIDE INJ 10 MG/ML 4 ML VIAL IV SCH (08:59)
[2017-06-28] MEDS: FAMOTIDINE 20 MG/2 ML VIAL IV SCH ×2 (08:59→21:32)
[2017-06-28] MEDS: ASPIRIN 325 MG TAB EC PO SCH (09:00)
[2017-06-28] MEDS: CLOPIDOGREL BISULFATE 75 MG TAB PO SCH (09:00)
[2017-06-28] MEDS: METOPROLOL TARTRATE 25 MG TAB PO SCH ×2 (09:01→18:38)
[2017-06-28] MEDS: NITROGLYCERIN 2% OINT 1 GM PKT TOP SCH ×2 (09:30→18:38)
[2017-06-28] MEDS ORDERED: SOD POLYSTYRENE SULFONATE SUSP 15 GM/60 ML BTL PO ONE (10:00)
[2017-06-28] MEDS ORDERED: ACETYLCYSTEINE 20% INHAL SOLN 30 ML VIAL PO SCH (10:07)
[2017-06-28] MEDS: SODIUM CHLORIDE 0.45% 1,000 ML IV SCH ×2 (10:43→23:20)
[2017-06-28] MEDS: ACETYLCYSTEINE 200 MG/ML 4ML VIAL PO SCH ×2 (10:43→18:38)
[2017-06-28] MEDS ORDERED: SODIUM CHLORIDE 0.9% 250ML 0 ML ONE (10:46)
--- NOTE | 2017-06-28 12:45 | Consultation ---
DATE OF CONSULTATION: June 28, 2017 HISTORY OF PRESENT ILLNESS: Most of the history from patient and partly from his . An 82-year-old gentleman with possible prior history of chronic kidney disease, underlying hypertension, prostate enlargement, came in with chest pains. Seen by Dr. Rodrigues, scheduled for apparent cardiac cath. I have not spoken to him personally, will talk to him as soon as I am done dictating. Patient awake, alert, sitting up. Asymptomatic right now. Denies any nausea, vomiting, or shortness of breath. He apparently came in with shortness of breath. ALLERGIES: HE HAS GOT NO DRUG ALLERGIES. CURRENT MEDICATIONS: Include heparin, aspirin, Plavix, famotidine, furosemide 40 IV q.12, ipratropium, levalbuterol, metoprolol, nitroglycerin, and ondansetron p.r.n. SOCIAL HISTORY: He does not smoke or drink. PAST HISTORY: Significant for hypertension. FAMILY HISTORY: Significant for hypertension. PHYSICAL EXAMINATION: GENERAL: Awake, alert, lying supine, no apparent distress. VITAL SIGNS: Blood pressure of 130/60, pulse rate 80. HEAD AND NECK: Corneae clear. Oral mucosa dry. Neck veins flat. LUNGS: Harsh vesicular breath sounds, clear. No rales. HEART: S1, S2 audible. ABDOMEN: Otherwise soft and nontender. EXTREMITIES: Lower extremity examination shows no edema. IMPRESSION: Most likely chronic kidney disease stage 3 with hyperkalemia. No evidence of any significant metabolic acidosis. Potassium actually is on the upper limit of normal. We will dose him with Kayexalate 15 grams p.o. stat. I have advised patient to stay away from orange juice and bananas. I will hold off on Lasix at this point in time. Discussed with Dr. Rodrigues. There is no clear-cut evidence of congestive heart failure. His hemoglobin is 12.4. His troponins are significantly elevated, highly suggestive of myocardial infarction with elevated BNP level. Urinalysis relatively benign. Discussed that patient had hnbjcotf-em-xqaz risk for dye-induced nephropathy. Discussed with patient and family. Explained to them. Final decision for cardiac cath per Dr. Rodrigues and patient. I will standby and prepare him in case cardiac cath is needed. Job#: [id number] VAS
--- NOTE | 2017-06-28 13:42 | Diagnostic Imaging Report ---
PROCEDURE:US RETROPERITONEAL ( KIDNEY ). COMPARISON:None. INDICATIONS:Acute kidney insufficiency TECHNIQUE: Nagy scale color Doppler ultrasound kidneys FINDINGS: Right: 8.2 x 4.4 x 3.8 cm. Cortical thickness 1.1 cm Left: 9.4 x 5.3 x 4.2 cm. Cortical thickness 1.2 cm Both kidneys demonstrate mildly increased parenchymal echogenicity. No conspicuous cyst, stone or mass. No hydronephrosis. Normal Doppler flow bilaterally. Ureters are patent bilaterally. Survey views of the urinary bladder are normal. Mild bladder wall thickening, likely secondary to under distention. Prostate volume: 24 mL (2.3 x 2.4 x 4.1 cm). CONCLUSION: 1. No evidence of obstruction or other acute abnormality. 2. The kidneys are small and echogenic in keeping with chronic renal disease. Dictated by: Don Sanches M.D. on 06/28/2017 at 13:42 Electronically approved by: Don Sanches M.D. on 06/28/2017 at 13:42
[2017-06-28 14:51] LABS: CREATININE,URINE RANDOM 20.49 mg/dL (63-166)
[2017-06-28 14:53] LABS: TOTAL PROTEIN, URINE < 6.8 mg/dL (1-14)
[2017-06-28] MEDS: HEPARIN 25,000U/0.45% NS 250ML 700 UNIT in SODIUM CHLORIDE 0.9% 250ML 0 ML IV SCH (16:23)
[2017-06-28] MEDS ORDERED: ACETYLCYSTEINE 200 MG/ML 4ML VIAL PO SCH (17:00)
[2017-06-28] MEDS: LEVALBUTEROL HCL SOLN NEBU 0.63 MG/3 ML NEB INH PRN ×2 (20:15)
[2017-06-28] MEDS: IPRATROPIUM BROMIDE 0.02% 2.5 ML NEB NEB PRN ×2 (20:15)
[2017-06-28] MEDS: ATORVASTATIN 20 MG TAB PO SCH (21:32)
[2017-06-29] VITALS (8 sets, daily range): BP systolic 102–124; BP diastolic 64–80
[2017-06-29] MEDS: HEPARIN 25,000U/0.45% NS 250ML 700 UNIT in SODIUM CHLORIDE 0.9% 250ML 0 ML IV SCH (05:34)
[2017-06-29] MEDS: NITROGLYCERIN 2% OINT 1 GM PKT TOP SCH ×4 (06:00→17:34)
[2017-06-29 06:39] LABS: ALBUMIN 3.2 g/dL (3.5-5.0); ALBUMIN/GLOBULIN RATIO 1.1 (0.8-2.0); ANION GAP 13.6 mmol/L (8-16); CALCIUM 8.5 mg/dL (8.4-10.2); CREATININE, SERUM 1.72 mg/dL (0.72-1.25); POTASSIUM 3.6 mmol/L (3.5-5.1)
[2017-06-29 07:00] LABS: CHOL/HDL RATIO 3.3 (3.9-4.7)
[2017-06-29] MEDS: ASPIRIN 325 MG TAB EC PO SCH (09:00)
[2017-06-29] MEDS ORDERED: ACETYLCYSTEINE 20% INHAL SOLN 30 ML VIAL PO SCH (09:00)
[2017-06-29] MEDS: CLOPIDOGREL BISULFATE 75 MG TAB PO SCH (09:00)
[2017-06-29] MEDS: METOPROLOL TARTRATE 25 MG TAB PO SCH ×2 (09:09→17:33)
[2017-06-29] MEDS: FAMOTIDINE 20 MG/2 ML VIAL IV SCH ×2 (09:09→20:32)
[2017-06-29] MEDS: LEVALBUTEROL HCL SOLN NEBU 0.63 MG/3 ML NEB INH PRN ×2 (10:49→21:24)
[2017-06-29] MEDS: IPRATROPIUM BROMIDE 0.02% 2.5 ML NEB NEB PRN ×2 (10:49→21:24)
[2017-06-29] MEDS ORDERED: LIDOCAINE HCL 2% LOCAL 20 ML VIAL ONE (11:17)
[2017-06-29] MEDS ORDERED: IOPAMIDOL 370 MG/ML 200 ML INFUS..BTL INJ ONE (11:18)
[2017-06-29] MEDS ORDERED: HEPARIN SOD/SOD CHLORIDE 2,000 ML ONE (11:18)
[2017-06-29] MEDS ORDERED: SODIUM CHLORIDE 0.9% 1000ML 1,000 ML ONE (11:48)
[2017-06-29] MEDS ORDERED: FENTANYL CITRATE/PF 100MCG/2 ML INJ ONE (11:48)
[2017-06-29] MEDS ORDERED: MIDAZOLAM HCL 2 MG/2 ML VIAL ONE (11:48)
[2017-06-29] MEDS ORDERED: ACETAMINOPHEN 325 MG TAB PO PRN (13:15)
[2017-06-29] MEDS: ACETYLCYSTEINE 200 MG/ML 4ML VIAL PO SCH ×2 (13:39→17:34)
[2017-06-29] MEDS: SODIUM CHLORIDE 0.45% 1,000 ML IV SCH (19:12)
--- NOTE | 2017-06-29 19:31 | Operative Report ---
DATE OF PROCEDURE: June 29, 2017 PROCEDURES PERFORMED: 1. Left heart catheterization. 2. Selective coronary angiogram. 3. Graft injection. INDICATIONS: Str-GA-hxyhzbfah MA. DESCRIPTION OF PROCEDURE: After informed consent, patient was brought to the cardiac catheterization laboratory and placed on the table. Both groins were painted and draped in a sterile fashion. Lidocaine was injected in the right groin for local anesthesia. Right femoral artery was accessed by Seldinger technique, and a 5-Irish sheath was placed in the right femoral artery. Left main artery was cannulated using a JL4, 5-Irish catheter. Coronary angiogram was performed, and images were obtained in multiple views. Right coronary artery was cannulated using a 3DRC 5-Irish catheter. Coronary angiogram was performed, and images were obtained in multiple views. The saphenous vein graft to the obtuse marginal branch was cannulated using the same 3DRC catheter, and images were obtained in multiple views. The saphenous vein graft to the right coronary artery was cannulated using a multipurpose catheter, and images were obtained in multiple views. The MYERS to the LAD was cannulated using a MYERS catheter, and coronary angiogram was performed and images were obtained in multiple views. A Wooly wire was used to advance the MYERS catheter into the subclavian artery. Patient tolerated the procedure without any complications. REPORT: LEFT MAIN: Is of normal caliber and has a 70% proximal lesion. LEFT ANTERIOR DESCENDING: Is of narrow caliber and has an 80% to 90% proximal lesion. LEFT CIRCUMFLEX: Is of normal caliber and has an 80% proximal lesion in the first obtuse mild branch with an 80% proximal lesion. RIGHT CORONARY ARTERY: Has had multiple stents and is occluded at its origin. MYERS TO LAD: Is patent. There is about an 80% lesion beyond the touchdown site. SAPHENOUS VEIN GRAFT TO THE OBTUSE MARGINAL BRANCH: Is occluded. SAPHENOUS VEIN GRAFT TO THE RIGHT CORONARY ARTERY: Is occluded. PLAN: Medical management. Patient is too high a risk for redo CABG. Job#: [id number] EV
[2017-06-29] MEDS: ATORVASTATIN 20 MG TAB PO SCH (20:32)
[2017-06-30] VITALS (7 sets, daily range): BP systolic 91–119; BP diastolic 59–76
[2017-06-30] MEDS: NITROGLYCERIN 2% OINT 1 GM PKT TOP SCH ×2 (00:49→05:55)
[2017-06-30] MEDS: SODIUM CHLORIDE 0.45% 1,000 ML IV SCH (06:33)
[2017-06-30 06:42] LABS: BASOPHILS % 0.2 % (0.0-1.0); HEMATOCRIT 30.5 % (38.2-49.6); HEMOGLOBIN 10.3 g/dL (14.0-18.0); LYMPHOCYTES # (AUTO) 0.8 (1.0-3.2); LYMPHOCYTES % 8.7 % (18.0-39.1); MEAN CORPUSCULAR HEMOGLOBIN 31.6 pg (28-32); MEAN CORPUSCULAR HGB CONC 33.8 g/dL (31-35); MEAN CORPUSCULAR VOLUME 93.6 fL (81-99); MONOCYTES # (AUTO) 0.4 (0.2-0.8); MONOCYTES % 4.4 % (4.4-11.3); NEUTROPHILS # (AUTO) 7.5 (2.1-6.9); NEUTROPHILS % 86.4 % (38.7-80.0); PLATELET COUNT 190 x10e3/uL (140-360); RED BLOOD COUNT 3.26 x10e6/uL (4.3-5.7)
[2017-06-30 07:10] LABS: ANION GAP 12.8 mmol/L (8-16); CALCIUM 8.2 mg/dL (8.4-10.2); CREATININE, SERUM 1.22 mg/dL (0.72-1.25); POTASSIUM 3.8 mmol/L (3.5-5.1)
[2017-06-30] MEDS: IPRATROPIUM BROMIDE 0.02% 2.5 ML NEB NEB PRN ×3 (08:18→19:10)
[2017-06-30] MEDS: LEVALBUTEROL HCL SOLN NEBU 0.63 MG/3 ML NEB INH PRN ×3 (08:18→19:10)
[2017-06-30] MEDS ORDERED: FUROSEMIDE INJ 10 MG/ML 4 ML VIAL IV ONE (08:30)
[2017-06-30] MEDS: ASPIRIN 325 MG TAB EC PO SCH (09:03)
[2017-06-30] MEDS: FAMOTIDINE 20 MG/2 ML VIAL IV SCH ×2 (09:03→21:30)
[2017-06-30] MEDS: ISOSORBIDE MONONITRATE 30 MG TAB CR PO SCH (09:04)
[2017-06-30] MEDS: METOPROLOL TARTRATE 25 MG TAB PO SCH ×2 (09:04→16:44)
[2017-06-30] MEDS: CLOPIDOGREL BISULFATE 75 MG TAB PO SCH (09:04)
[2017-06-30] MEDS: ATORVASTATIN 20 MG TAB PO SCH (21:30)
[2017-07-01] VITALS (7 sets, daily range): BP systolic 107–142; BP diastolic 58–75
[2017-07-01] MEDS: IPRATROPIUM BROMIDE 0.02% 2.5 ML NEB NEB PRN ×4 (01:50→20:32)
[2017-07-01] MEDS: LEVALBUTEROL HCL SOLN NEBU 0.63 MG/3 ML NEB INH PRN ×4 (01:50→20:32)
[2017-07-01] MEDS: ISOSORBIDE MONONITRATE 30 MG TAB CR PO SCH (09:00)
[2017-07-01] MEDS ORDERED: FUROSEMIDE 40 MG TAB PO SCH (09:00)
[2017-07-01] MEDS: FAMOTIDINE 20 MG/2 ML VIAL IV SCH (09:00)
[2017-07-01] MEDS: ASPIRIN 325 MG TAB EC PO SCH (09:00)
[2017-07-01] MEDS: METOPROLOL TARTRATE 25 MG TAB PO SCH ×2 (09:00→17:08)
[2017-07-01] MEDS: CLOPIDOGREL BISULFATE 75 MG TAB PO SCH (09:00)
[2017-07-01] MEDS: ONDANSETRON HCL INJ 2 MG/ML VIAL IV PRN (12:50)
[2017-07-01] MEDS: FUROSEMIDE 40 MG TAB PO SCH (17:06)
[2017-07-01] MEDS: FAMOTIDINE 20 MG TAB PO SCH (17:09)
[2017-07-01] MEDS: ATORVASTATIN 20 MG TAB PO SCH (20:10)
[2017-07-01] MEDS ORDERED: TRAZODONE HCL 50 MG TAB PO ONE (23:15)
[2017-07-02] VITALS (10 sets, daily range): BP systolic 99–110; BP diastolic 58–64
[2017-07-02 04:55] LABS: ALBUMIN 2.7 g/dL (3.5-5.0); ANION GAP 15.8 mmol/L (8-16); CALCIUM 8.8 mg/dL (8.4-10.2); CREATININE, SERUM 1.81 mg/dL (0.72-1.25); POTASSIUM 3.8 mmol/L (3.5-5.1)
[2017-07-02] MEDS: FUROSEMIDE 40 MG TAB PO SCH ×2 (06:39→17:30)
[2017-07-02] MEDS: FAMOTIDINE 20 MG TAB PO SCH ×2 (09:46→17:30)
[2017-07-02] MEDS: METOPROLOL TARTRATE 25 MG TAB PO SCH ×2 (09:46→17:30)
[2017-07-02] MEDS: ASPIRIN 325 MG TAB EC PO SCH (09:46)
[2017-07-02] MEDS: ISOSORBIDE MONONITRATE 30 MG TAB CR PO SCH (09:46)
[2017-07-02] MEDS: CLOPIDOGREL BISULFATE 75 MG TAB PO SCH (09:46)
--- NOTE | 2017-07-02 11:39 | Diagnostic Imaging Report ---
EXAMINATION: CHEST SINGLE (PORTABLE) INDICATION: \S\DYSPNEA COMPARISON: Chest x-ray 06/27/2017 FINDINGS: AP view TUBES and LINES: Median sternotomy wires and mediastinal clips are unchanged. LUNGS: Lungs are well inflated. Focal mild airspace opacities in the left lateral lung base unchanged. There is mild prominence of the central pulmonary vasculature, consistent with pulmonary venous congestion. PLEURA: New left apical pleural thickening. HEART AND MEDIASTINUM: The cardiomediastinal silhouette is unremarkable. There are atherosclerotic calcifications within the aorta. BONES AND SOFT TISSUES: No acute osseous lesion. Soft tissues are unremarkable. UPPER ABDOMEN: No free air under the diaphragm. IMPRESSION: 1. Interval development of central pulmonary venous congestion. 2. Questionable focal pneumonia in the left lateral lung base. 3. New left apical pleural thickening, which may represent effusion. Signed by: Dr. Mario De Paz M.D. on 07/02/2017 11:36 AM
[2017-07-02] MEDS: ATORVASTATIN 20 MG TAB PO SCH (20:41)
[2017-07-02] MEDS: BUDESONIDE 0.5MG/2 ML NEB INH SCH (20:50)
[2017-07-02] MEDS: IPRATROPIUM BROMIDE 0.02% 2.5 ML NEB NEB SCH ×2 (20:50→23:41)
--- NOTE | 2017-07-02 23:38 | Consultation ---
DATE OF CONSULTATION: PULMONARY CONSULTATION REASON FOR CONSULTATION: Episodes of shortness of breath. HISTORY OF PRESENT ILLNESS: Mr. Lovell is an 82-year-old male known to me from previous admission. Patient has history of coronary artery disease, history of CABG. EF was 35% to 40% in 2016. Patient underwent a repeat cath by Dr. Rodrigues showing triple-vessel disease but too high risk for CABG. Patient has almost 65 to 24-dpti-jbhx smoking history. He had 2 episodes of shortness of breath despite being on breathing treatments. He denies any chest pain, nausea, vomiting. He is on diuretics as well for his heart failure. REVIEW OF SYSTEMS: GENERAL: Denies any fever chills. HEAD: Denies any head trauma or head injury. ENT: Denies any earache, nosebleed, throat pain. CVS: Denies any chest pain. RESPIRATORY: Shortness of breath. GI: Denies any nausea or vomiting. REST OF THE REVIEW OF SYSTEMS: Are negative except as in history of present illness. PAST MEDICAL HISTORY: COPD, hypertension, coronary artery disease, CABG, atrial fibrillation, CKD. PAST SURGICAL HISTORY: History of VT, history of CABG. FAMILY HISTORY: Significant for heart disease. SOCIAL HISTORY: He quit smoking a year ago, a 79-iutg-jide smoking history. Denies any alcohol use. PHYSICAL EXAMINATION: VITALS: Temperature 96.5, pulse of 78, blood pressure 104/58, respiratory rate of 18, O2 sat 94% on 2 liters. SKIN: Warm and dry. GENERAL APPEARANCE: He is an elderly male not in any obvious distress. He is awake and alert, following commands, responding to questions appropriately. HEENT: Head atraumatic, normocephalic. Pupils are reactive. NECK: Supple. CHEST: Clear to auscultation bilaterally. HEART: S1/S2 audible. No murmurs, gallops or rub. ABDOMEN: Soft, nontender. EXTREMITIES: No clubbing, cyanosis or edema. NEUROLOGICALLY: Awake and alert. LABORATORY DATA: Sodium 134, potassium 3.8, BUN 51, creatinine 1.8. White count of 8.6, hemoglobin 10.3, platelets 190. Chest x-ray I have reviewed. I do not see a lot of change in it. Possibility of pneumonia has been reported. However, I do not think that he has any infiltrate on the chest x-ray. ASSESSMENT AND PLAN: An 82-year-old male with coronary artery disease and congestive heart failure with episodes of shortness of breath, high likelihood of having chronic obstructive pulmonary disease. PLAN: Continue the patient on ipratropium nebulizer treatment. I will add Pulmicort nebulizers. Will follow him closely. May need to add IV Solu-Medrol. However, may need to add prednisone if continues to have shortness of breath. Will hold off on the antibiotics for now. Job#: [id number] EV
[2017-07-03] VITALS (7 sets, daily range): BP systolic 92–116; BP diastolic 54–64
[2017-07-03] MEDS: TRAZODONE HCL 50 MG TAB PO PRN (01:54)
[2017-07-03] MEDS: IPRATROPIUM BROMIDE 0.02% 2.5 ML NEB NEB SCH ×6 (03:32→23:45)
[2017-07-03] MEDS: FUROSEMIDE 40 MG TAB PO SCH ×2 (05:47→18:20)
[2017-07-03] MEDS: BUDESONIDE 0.5MG/2 ML NEB INH SCH ×2 (07:00→20:00)
[2017-07-03 07:34] LABS: BASOPHILS % 0.5 % (0.0-1.0); EOSINOPHILS % 0.2 % (0.0-6.0); HEMATOCRIT 32.9 % (38.2-49.6); HEMOGLOBIN 10.8 g/dL (14.0-18.0); LYMPHOCYTES # (AUTO) 0.5 (1.0-3.2); LYMPHOCYTES % 12.3 % (18.0-39.1); MEAN CORPUSCULAR HEMOGLOBIN 31.8 pg (28-32); MEAN CORPUSCULAR HGB CONC 32.8 g/dL (31-35); MEAN CORPUSCULAR VOLUME 96.8 fL (81-99); MONOCYTES # (AUTO) 0.2 (0.2-0.8); MONOCYTES % 4.7 % (4.4-11.3); NEUTROPHILS # (AUTO) 3.4 (2.1-6.9); NEUTROPHILS % 80.6 % (38.7-80.0); PLATELET COUNT 163 x10e3/uL (140-360); RED CELL DISTRIBUTION WIDTH 13.5 % (11.7-14.4)
[2017-07-03 08:06] LABS: ANION GAP 17.9 mmol/L (8-16); CREATININE, SERUM 1.99 mg/dL (0.72-1.25); POTASSIUM 3.9 mmol/L (3.5-5.1)
[2017-07-03] MEDS: ASPIRIN 325 MG TAB EC PO SCH (09:20)
[2017-07-03] MEDS: METOPROLOL TARTRATE 25 MG TAB PO SCH ×2 (09:20→18:20)
[2017-07-03] MEDS: FAMOTIDINE 20 MG TAB PO SCH ×2 (09:20→18:20)
[2017-07-03] MEDS: ISOSORBIDE MONONITRATE 30 MG TAB CR PO SCH (09:20)
[2017-07-03] MEDS: CLOPIDOGREL BISULFATE 75 MG TAB PO SCH (09:20)
[2017-07-03] MEDS: LEVALBUTEROL HCL SOLN NEBU 0.63 MG/3 ML NEB INH PRN ×2 (11:25→23:45)
--- NOTE | 2017-07-03 15:23 | Consultation ---
DATE OF CONSULTATION: July 03, 2017 GASTROENTEROLOGY CONSULTATION REASON FOR CONSULTATION: Elevated LFTs. HPI: Mr. Lovell is an 82-year-old gentleman with a complicated past medical history, who presented to the hospital with a tuk-WZ-tzapemstd TN. Subsequently, the patient had a cardiac cath, which shows tri-vessel disease, but the patient is not in a condition to have another CABG. During his hospitalization, the patient was found to have elevated liver enzymes. The patient has no previous history of liver disease. Denies any recent new changes in medications. REVIEW OF SYSTEMS: A 12-point review of systems was completed with the patient. Pertinent positives are included in the HPI. ALLERGIES: NO KNOWN DRUG ALLERGIES. MEDICATIONS: Per the MAR. MEDICAL HISTORY 1. CAD. 2. CABG. 3. COPD. 4. Dementia. 5. CHF. SOCIAL HISTORY: Negative for alcohol, tobacco or illicit drug use. FAMILY HISTORY: Negative for GI malignancies. PHYSICAL EXAMINATION VITAL SIGNS: Temperature 97.3, blood pressure 114/64, pulse rate 76, saturating 98% on room air with a respiratory rate of 18. GENERAL: This is a well-developed, well-nourished gentleman in no acute distress. Resting comfortably in bed. HEENT: Head is normocephalic and atraumatic. Extraocular movements are intact. Oropharynx is clear. NECK: Supple. No palpable thyromegaly or masses. CARDIOVASCULAR: Regular rate and rhythm. No murmurs, gallops or rubs. PMI is nondisplaced. LUNGS: Diminished breath sounds in bilateral bases. ABDOMEN: Positive bowel sounds. EXTREMITIES: Two plus pulses. No clubbing, cyanosis or edema. NEURO: Nonfocal. PSYCH: Euthymic. LABS: Sodium 137, potassium 3.9, chloride 99, bicarb 24, BUN 61, creatinine 1.9, AST of 2256, ALT of 4050, alkaline phosphatase is 203, bilirubin is 0.7. PTT is 33. White blood cell count 4.2, hemoglobin 10.8, hematocrit 32.9, and platelet count of 163,000. No evidence of abdominal imaging completed during this hospitalization. ASSESSMENT AND PLAN: This is an 82-year-old gentleman who presented to the hospital with a ziq-CO-htvtqdp elevation myocardial infarction and severe coronary disease, as well as congestive heart failure exacerbation. Also, developed acute liver injury. 1. Acute liver injury: The patient has an acute liver injury without evidence of acute liver failure. This is complicated by the fact that the patient was on heparin. However, INR seems to have normalized. At this time, the presumptive diagnosis is related to hypoperfusion from the bdg-VM-knegjpa elevation myocardial infarction. The patient's liver enzymes are slowly worsening. Hopefully, these will continue to improve. Will need to be monitored closely. Will obtain an ultrasound of the liver, as well as an acute hepatitis panel and KILO to exclude any reversible pathology. However, given the worsening of his injury and his complex medical history, his overall prognosis is quite poor. 2. Anemia: The patient has mild anemia without active signs of gastrointestinal bleeding. Will continue to monitor this. I would like to thank Dr. Castano for allowing us to participate in the care of this patient. Job#: [id number] MARICARMEN
[2017-07-03] MEDS: ATORVASTATIN 20 MG TAB PO SCH (21:10)
[2017-07-04] VITALS (8 sets, daily range): BP systolic 91–159; BP diastolic 52–82
[2017-07-04] MEDS: LEVALBUTEROL HCL SOLN NEBU 0.63 MG/3 ML NEB INH PRN ×3 (02:50→19:45)
[2017-07-04] MEDS: IPRATROPIUM BROMIDE 0.02% 2.5 ML NEB NEB SCH ×5 (02:50→23:00)
[2017-07-04] MEDS: FUROSEMIDE 40 MG TAB PO SCH ×2 (05:42→16:34)
[2017-07-04 06:38] LABS: BASOPHILS % 0.3 % (0.0-1.0); EOSINOPHILS # (AUTO) 0.1 (0.0-0.4); EOSINOPHILS % 2.4 % (0.0-6.0); HEMATOCRIT 29.9 % (38.2-49.6); HEMOGLOBIN 9.9 g/dL (14.0-18.0); LYMPHOCYTES # (AUTO) 0.4 (1.0-3.2); LYMPHOCYTES % 9.8 % (18.0-39.1); MEAN CORPUSCULAR HEMOGLOBIN 31.7 pg (28-32); MEAN CORPUSCULAR HGB CONC 33.1 g/dL (31-35); MEAN CORPUSCULAR VOLUME 95.8 fL (81-99); MONOCYTES # (AUTO) 0.2 (0.2-0.8); MONOCYTES % 6.5 % (4.4-11.3); NEUTROPHILS # (AUTO) 2.9 (2.1-6.9); NEUTROPHILS % 79.4 % (38.7-80.0); PLATELET COUNT 167 x10e3/uL (140-360); RED BLOOD COUNT 3.12 x10e6/uL (4.3-5.7); RED CELL DISTRIBUTION WIDTH 13.5 % (11.7-14.4)
[2017-07-04] MEDS: BUDESONIDE 0.5MG/2 ML NEB INH SCH ×2 (06:45→19:45)
[2017-07-04 07:09] LABS: ALBUMIN 2.7 g/dL (3.5-5.0); ANION GAP 15.8 mmol/L (8-16); CALCIUM 8.4 mg/dL (8.4-10.2); CREATININE, SERUM 1.78 mg/dL (0.72-1.25); POTASSIUM 3.8 mmol/L (3.5-5.1)
[2017-07-04 07:45] LABS: BAND NEUTROPHILS % (MANUAL) 2 %; EOSINOPHILS % (MANUAL) 4 % (0-7); LYMPHOCYTES % (MANUAL) 13 % (19-48); MONOCYTES % (MANUAL) 8 % (3.4-9.0); NEUTROPHILS % (MANUAL) 73 % (40-74); NUCLEATED RED BLOOD CELLS 2; PLATELET ESTIMATE ADEQUATE; PLATELET MORPHOLOGY COMMENT NORMAL; RBC MORPHOLOGY COMMENT NORMAL
[2017-07-04] MEDS: FAMOTIDINE 20 MG TAB PO SCH ×2 (08:29→16:34)
[2017-07-04] MEDS: ASPIRIN 325 MG TAB EC PO SCH (08:29)
[2017-07-04] MEDS: METOPROLOL TARTRATE 25 MG TAB PO SCH ×2 (08:31→16:34)
[2017-07-04] MEDS: CLOPIDOGREL BISULFATE 75 MG TAB PO SCH (08:31)
[2017-07-04] MEDS ORDERED: ISOSORBIDE MONONITRATE 30 MG TAB CR PO SCH (09:00)
--- NOTE | 2017-07-04 16:53 | Diagnostic Imaging Report ---
PROCEDURE:US ABDOMEN LIMITED COMPARISON:None. INDICATIONS:ACUTE LIVER INJURY TECHNIQUE: Jean-Baptiste-scale and color Doppler transverse and longitudinal images of the right upper quadrant of the abdomen were obtained. FINDINGS: Liver: 13.2 cm in right mid-clavicular line. Normal echogenicity. No masses. Main portal vein: 0.6 cm Gallbladder: Present contains tumefactive sludge and small stones. Gallbladder wall measures 4 mm. Small amount of pericholecystic fluid cannot be excluded. Common Bile Duct: 0.2 cm. Sonographic Pate's sign: Negative Right kidney: 8.3 cm in length. The cortex is thin. The echotexture is increased. No solid masses or hydronephrosis. Pancreas: Visualized portions are diffusely increased in echotexture without mass or ductal dilatation. Inferior vena cava: Patent Aorta: Ectatic with atherosclerotic plaque. The distal aorta is not visualized. Ascites: None in the right upper quadrant of the abdomen. CONCLUSION: 1. Sonographically normal liver. 2. Sludge and small gallstones in the gallbladder. Mild gallbladder wall thickening. Cholecystitis cannot be excluded. No biliary ductal dilatation. 3. Atherosclerosis. Poor visualization of the distal aorta. Stenosis of the distal aorta cannot be excluded. 4. Increased renal echotexture consistent with medical renal disease. Dictated by: Pepe Hook M.D. on 07/04/2017 at 16:54 Electronically approved by: Pepe Hook M.D. on 07/04/2017 at 16:54
[2017-07-04] MEDS: RANOLAZINE 500 MG TABSR PO SCH (17:35)
[2017-07-04] MEDS: ONDANSETRON HCL INJ 2 MG/ML VIAL IV PRN (20:45)
[2017-07-04] MEDS: TRAZODONE HCL 50 MG TAB PO PRN (23:19)
[2017-07-05 04:00] VITALS: BP 103/60
[2017-07-05] MEDS ORDERED: TRAZODONE HCL 50 MG TAB PO PRN (05:15)
[2017-07-05] MEDS: FUROSEMIDE 40 MG TAB PO SCH (06:36)
[2017-07-05] MEDS: BUDESONIDE 0.5MG/2 ML NEB INH SCH (07:15)
[2017-07-05] MEDS: IPRATROPIUM BROMIDE 0.02% 2.5 ML NEB NEB SCH (07:15)
[2017-07-05] MEDS: LEVALBUTEROL HCL SOLN NEBU 0.63 MG/3 ML NEB INH PRN (07:15)
[2017-07-05 07:47] LABS: ALBUMIN 2.8 g/dL (3.5-5.0); ANION GAP 17.6 mmol/L (8-16); CALCIUM 8.4 mg/dL (8.4-10.2); CREATININE, SERUM 1.54 mg/dL (0.72-1.25); POTASSIUM 3.6 mmol/L (3.5-5.1)
[2017-07-05 07:59] VITALS: BP 130/69
[2017-07-05 08:14] LABS: BILIRUBIN,DIRECT 0.4 mg/dL (0.0-0.5)
[2017-07-05] MEDS: FAMOTIDINE 20 MG TAB PO SCH (08:35)
[2017-07-05] MEDS: ASPIRIN 325 MG TAB EC PO SCH (08:35)
[2017-07-05] MEDS: CLOPIDOGREL BISULFATE 75 MG TAB PO SCH (08:36)
[2017-07-05] MEDS: RANOLAZINE 500 MG TABSR PO SCH (08:36)
[2017-07-05] MEDS: METOPROLOL TARTRATE 25 MG TAB PO SCH (08:36)
[2017-07-05 09:14] VITALS: BP 130/69
[2017-07-05] MEDS ORDERED: ISOSORBIDE MONO30 MG PO (09:24)
[2017-07-05] MEDS ORDERED: METOPROLOL TART25 MG PO (09:24)
[2017-07-06] MEDS ORDERED: LOPRESSOR25 MG PO (20:34)
[2017-07-06] MEDS ORDERED: DONEPEZIL HCL10 MG (20:34)
[2017-07-06] MEDS ORDERED: RANEXA500 MG (20:34)
[2017-07-06] MEDS ORDERED: PANTOPRAZOLE SO40 MG (20:34)
[2017-07-06] MEDS ORDERED: SIMVASTATIN20 MG (20:34)
[2017-07-06] MEDS ORDERED: CLOPIDOGREL75 MG (20:34)
[2017-07-06] MEDS ORDERED: FUROSEMIDE40 MG (20:34)
[2017-07-06] MEDS ORDERED: POTASSIUM CHLO20 ME1 (20:34)
[2017-07-06] MEDS ORDERED: LISINOPRIL5 MG (20:35)
[2017-07-06] MEDS ORDERED: ALLOPURINOL300 MG PO (20:36)
[2017-07-06] MEDS ORDERED: ASPIRIN325 MG PO (20:36)
== END 2017-07-05 09:50 | disposition home or self-care (01) | DRG 280 ==
LOC: ER 03:55 → IMCU 05:43 → MED/SURG 06-30 14:01
PROVIDERS: ADMIT Internal Medicine; ATTEND Internal Medicine
PROC: 4A023N7 Measurement of Cardiac Sampling and Pressure, Left Heart, Percutaneous Approach (ICD-10-PCS; principal; 2017-06-29)
PROC: B2111ZZ Fluoroscopy of Multiple Coronary Arteries using Low Osmolar Contrast (ICD-10-PCS; 2017-06-29)
PROC: B2131ZZ Fluoroscopy of Multiple Coronary Artery Bypass Grafts using Low Osmolar Contrast (ICD-10-PCS; 2017-06-29)
PROC: B2181ZZ Fluoroscopy of Left Internal Mammary Bypass Graft using Low Osmolar Contrast (ICD-10-PCS; 2017-06-29)
PROC: B2151ZZ Fluoroscopy of Left Heart using Low Osmolar Contrast (ICD-10-PCS; 2017-06-29)
DX: I21.4 Non-ST elevation (NSTEMI) myocardial infarction (principal); I50.23 Acute on chronic systolic (congestive) heart failure; N17.9 Acute kidney failure, unspecified; I13.0 Hypertensive heart and chronic kidney disease with heart failure and stage 1 through stage 4 chronic kidney disease, or unspecified chronic kidney disease; J44.9 Chronic obstructive pulmonary disease, unspecified; F03.90 Unspecified dementia, unspecified severity, without behavioral disturbance, psychotic disturbance, mood disturbance, and anxiety; I25.10 Atherosclerotic heart disease of native coronary artery without angina pectoris; D64.9 Anemia, unspecified; Z95.1 Presence of aortocoronary bypass graft; E87.5 Hyperkalemia; N40.0 Benign prostatic hyperplasia without lower urinary tract symptoms; F17.220 Nicotine dependence, chewing tobacco, uncomplicated; G47.00 Insomnia, unspecified; R94.5 Abnormal results of liver function studies
CPT/HCPCS: 36140; 36415; 71045; 76705; 76770; 77002; 80048; 80053; 80061; 81001; 82248; 82550; 82553; 82570; 83605; 83735; 83880; 84156; 84484; 85025; 85610; 85730; 86039; 87040; 93005; 93459; 94640; 97139; 99284; J1644; J1940; J2001; J2250; J2405; J2930; J7030; J7050; Q9967

== ENCOUNTER 2017-07-06 15:58 | Inpatient (IN) | payer MEDICARE ==
[2017-07-06] VITALS (9 sets, daily range): BP systolic 126–142; BP diastolic 75–88
[~2017-07-06] VITALS: Ht 162.6 cm; Wt 65.4 kg
[~2017-07-06 15:58] MED LIST changes: +ALLOPURINOL300 MG PO; +ISOSORBIDE MONO30 MG PO; +METOPROLOL TART25 MG PO; +MYBETRIC PO
--- OUTSIDE RECORDS SUMMARY | 2017-07-06 16:00 | XMS REPORT | Continuity of Care Document ---
Author Author [facility] Organization [facility] Address [address] [place] [address] Phone Unavailable Care Team Providers Care Executive Team Leader Name Role Phone CARLOS ALBERTO PEARCE MD PCP Insurance Providers Guarantor Timothy Rodgers Address [address] [place] [address] Email [email or web address] Payer [facility] Policy Number [id number] Subscriber's Name Timothy Rodgers Relationship 18 Self / Same As Patient Group Number [id number] Group Name RETIRED Effective Date 17 Advance Directives Directive Response Recorded Date/Time Does the patient have an advance directive? No 06/27/17 6:42am If yes, is advance directive on file with [facility]? No 06/27/17 6:42am If not on file with [facility] will patient provide a copy? Yes 06/27/17 6:42am Do you have a Directive to Physician? No 06/27/17 3:57am Do you have a Medical Power of Algebra Tutor? No 06/27/17 3:57am Do you have an out of hospital Do Not Resuscitate Order? No 06/27/17 3:57am Do you have any special needs we should be aware of? No 06/27/17 3:57am Do you have a support person here with you today? Yes 06/27/17 3:57am Did patient receive Notice of Privacy Practices? Yes 06/27/17 3:57am Did patient receive patient rights and responsibilities? Yes 06/27/17 3:57am Problems Medical Problem Onset Date Status Bradyarrhythmia 2016 Acute CHF (congestive heart failure) Unknown CKD (chronic kidney disease) Unknown COPD (chronic obstructive pulmonary disease) Unknown Chest pain 2016 Acute Non-STEMI (non-ST elevated myocardial infarction) Unknown Pneumonia 06/02/2015 Acute Sick sinus syndrome 2016 Acute Medications Current Home Medications Medication Dose Units Route Directions Days Qty Instructions Start Date Allopurinol 300 Mg Tablet 300 Mg Oral Daily 30 Tab Aspirin 325 Mg Tablet 325 Mg Oral Daily 30 Tab Clopidogrel Bisulfate (Plavix) 75 Mg Tablet 75 Mg Oral Daily Donepezil Hcl (Aricept) 10 Mg Tablet 10 Mg Oral Daily Furosemide 40 Mg Tablet 40 Mg Oral Twice A Day Ipratropium [place] (Atrovent 0.02% Neb) 2.5 Ml Soln Every 6 Hours Isosorbide Mononitrate (Isosorbide Mononitrate Er) 30 Mg Tab.er.24h 30 Mg Oral Twice A Day 30 Tab Metoprolol Tartrate 25 Mg Tablet 12.5 Mg Oral Twice A Day Mybetric 25 Mg Oral Daily Nitroglycerin (Nitrostat) 0.4 Mg Tab.subl As Directed Pantoprazole Sodium (Protonix) 40 Mg Suspdr.pkt 40 Mg Oral Daily Potassium Chloride (K-Dur) 20 Meq Tabcr 20 Meq Oral Twice A Day Simvastatin 20 Mg Tablet 20 Mg Oral Daily Past Home Medications Medication Directions Ordered Status Levalbuterol Hcl (Xopenex) 0.63 Mg/3 Ml Vial.neb, Inhalation As Needed Discontinued Lisinopril 5 Mg Tablet, 5 Mg Oral Daily Discontinued Metoprolol Succinate 25 Mg Tab.sr.24h, 25 Mg Oral Daily Discontinued Ranolazine (Ranexa) 500 Mg Tabsr, 500 Mg Oral Twice A Day Discontinued Social History Social History Problem Response Recorded Date/Time Onset Date Status Hx Psychiatric Problems No 06/27/2017 6:42am Not Applicable Not Applicable Hx Eating Disorder No 06/27/2017 6:42am Not Applicable Not Applicable Hx Substance Use Disorder No 06/27/2017 6:42am Not Applicable Not Applicable Hx Depression No 06/27/2017 6:42am Not Applicable Not Applicable Hx Alcohol Use No 06/27/2017 6:42am Not Applicable Not Applicable Hx Substance Use Treatment No 06/27/2017 6:42am Not Applicable Not Applicable Hx Physical Abuse No 06/27/2017 6:42am Not Applicable Not Applicable Smoking Status Start Date Stop Date Former smoker Hospital Discharge Instructions No hospital discharge instruction information available. Plan of Care Discharge Date 07/05/17 9:50am Disposition HOME, SELF-CARE Instructions/Education Provided COPD Congestive Heart Failure Using Oxygen at Home Prescriptions See Medication Section Referrals CARLOS ALBERTO PEARCE MD (Internal Medicine) Order Date: 1-2 Weeks Entered Date: 07/05/2017 8:05am Address: [address] [place] [address] [address] [place] [address] ADE COOPER MD (Gastroenterology) Order Date: 1-2 Weeks Entered Date: 07/05/2017 8:05am Address: [address] [place], [place] [address] [address] [place] [address] NORMA MCNAIR MD (Cardiology) Order Date: 1-2 Weeks Entered Date: 07/05/2017 9:25am Address: [address] [place] [address] [address] [place] [address] Additional Instructions/Education ACTIVITY TOLERATED OXYGEN AT HOME ON 3 LITERS NEEDED F/U WITH PCP IN 1-2 WEEKS F/U WITH DR. MCNAIR F/U WITH DR. COOPER REGARDING LIVER ENZYMES BEING ELEVATED Functional Status Query Response Date Recorded FUNCTIONAL STATUS . June 30, 2017 5:56pm Assistive Devices Standard Walker June 27, 2017 6:43am Ambulation Ability Independent June 27, 2017 6:43am Toileting Ability Minimum Assistance July 04, 2017 6:24pm Allergies, Adverse Reactions, Alerts Allergen Type Severity Reaction Status Last Updated No Known Drug Allergies Allergy Unknown Active 06/12/08 Immunizations No immunization information available. Vital Signs Acute Vital Signs Vital Response Date/Time Temperature (Fahrenheit) 97.5 degrees F (97.6 - 99.5) 07/05/2017 9:14am Pulse Pulse Rate (adult) 109 bpm (60 - 90) 07/05/2017 9:14am Respiratory Rate 18 bpm (12 - 24) 07/05/2017 9:14am Blood Pressure 130/69 mm Hg 07/05/2017 9:14am Height 5 ft 3 in 06/27/2017 4:09am Weight 119.04 lb 06/28/2017 6:00pm Body Mass Index 21.1 kg/m^2 07/03/2017 9:11am Results Laboratory Results Test Name Result Units Flags Reference Collection Date/Time Result Date/ Time Comments Hemoglobin A1c Percent 5.0 % 4.0-7.0 06/13/2017 6:31am 06/13/2017 7: 19am White Blood Count 3.68 x10e3/uL L 4.8-10.8 07/04/2017 6:10am 07/04/2017 6:39am Red Blood Count 3.12 x10e6/uL L 4.3-5.7 07/04/2017 6:10am 07/04/2017 6: 39am Hemoglobin 9.9 g/dL L 14.0-18.0 07/04/2017 6:10am 07/04/2017 6:39am Hematocrit 29.9 % L 38.2-49.6 07/04/2017 6:10am 07/04/2017 6:39am Mean Corpuscular Volume 95.8 fL 81-99 07/04/2017 6:10am 07/04/2017 6: 39am Mean Corpuscular Hemoglobin 31.7 pg 28-32 07/04/2017 6:10am 07/04/2017 6:39am Mean Corpuscular Hemoglobin Concent 33.1 g/dL 31-35 07/04/2017 6:10am 07/04/2017 6:39am Red Cell Distribution Width 13.5 % 11.7-14.4 07/04/2017 6:10am 2017 6:39am Platelet Count 167 x10e3/uL 140-360 07/04/2017 6:10am 07/04/2017 6: 39am Neutrophils (%) (Auto) 79.4 % 38.7-80.0 07/04/2017 6:07/04/2017 6: 39am Lymphocytes (%) (Auto) 9.8 % L 18.0-39.1 07/04/2017 6:07/04/2017 6: 39am Monocytes (%) (Auto) 6.5 % 4.4-11.3 07/04/2017 6:07/04/2017 6: 39am Eosinophils (%) (Auto) 2.4 % 0.0-6.0 07/04/2017 6:07/04/2017 6: 39am Basophils (%) (Auto) 0.3 % 0.0-1.0 07/04/2017 6:07/04/2017 6:39am IM GRANULOCYTES % 1.6 % H 0.0-1.0 07/04/2017 6:07/04/2017 6:39am Neutrophils # (Auto) 2.9 2.1-6.9 07/04/2017 6:07/04/2017 6:39am Lymphocytes # (Auto) 0.4 L 1.0-3.2 07/04/2017 6:07/04/2017 6: 39am Monocytes # (Auto) 0.2 0.2-0.8 07/04/2017 6:07/04/2017 6:39am Eosinophils # (Auto) 0.1 0.0-0.4 07/04/2017 6:07/04/2017 6:39am Basophils # (Auto) 0.0 0.0-0.1 07/04/2017 6:07/04/2017 6:39am Absolute Immature Granulocyte (auto 0.06 x10e3/uL 0-0.1 07/04/2017 6: 07/04/2017 6:39am Differential Total Cells Counted 100 07/04/2017 6:07/04/2017 7 :46am Neutrophils % (Manual) 73 % 40-74 07/04/2017 6:07/04/2017 7:46am Band Neutrophils % 2 % 07/04/2017 6:07/04/2017 7:46am Lymphocytes % (Manual) 13 % L 19-48 07/04/2017 6:07/04/2017 7:46am Monocytes % (Manual) 8 % 3.4-9.0 07/04/2017 6:10am 07/04/2017 7:46am Eosinophils % (Manual) 4 % 0-7 07/04/2017 6:10am 07/04/2017 7:46am Nucleated Red Blood Cells 2 07/04/2017 6:10am 07/04/2017 7:46am Platelet Estimate ADEQUATE 07/04/2017 6:10am 07/04/2017 7:46am Platelet Morphology Comment NORMAL 07/04/2017 6:10am 07/04/2017 7: 46am Red Cell Morphology Comment NORMAL 07/04/2017 6:10am 07/04/2017 7: 46am Prothrombin Time 12.4 seconds 11.9-14.5 06/27/2017 4:05am 06/27/2017 4: 30am Prothromb Time International Ratio 1.00 06/27/2017 4:05am 2017 4:30am Oral Anticoagulant Therapy INR Values: 1. Low Intensity Therapy 1.5 - 2.0 2. Moderate Intensity Therapy 2.0 - 3.0 3. High Intensity Therapy(1) 2.5 - 3.5 4. High Intensity Therapy(2) 3.0 - 4.0 5. Panic Value INR > 5.0 Activated Partial Thromboplast Time 33.2 seconds 23.8-35.5 06/28/2017 8: 30pm 06/28/2017 9:01pm Urine Color YELLOW YELLOW 06/27/2017 4:11am 06/27/2017 4:27am Urine Clarity CLEAR CLEAR 06/27/2017 4:11am 06/27/2017 4:27am Urine Specific [place] 1.015 1.010-1.025 06/27/2017 4:11am 2017 4:27am Urine pH 5 5 - 7 06/27/2017 4:11am 06/27/2017 4:27am Urine Leukocyte Esterase NEGATIVE NEGATIVE 06/27/2017 4:11am 2017 4:27am Urine Nitrite NEGATIVE NEGATIVE 06/27/2017 4:11am 06/27/2017 4:27am Urine Protein NEGATIVE NEGATIVE 06/27/2017 4:11am 06/27/2017 4:27am Urine Glucose (UA) NEGATIVE NEGATIVE 06/27/2017 4:11am 06/27/2017 4: 27am Urine Ketones NEGATIVE NEGATIVE 06/27/2017 4:06/27/2017 4:27am Urine Urobilinogen 0.2 mg/dL 0.2 - 1 06/27/2017 4:06/27/2017 4: 27am Urine Bilirubin NEGATIVE NEGATIVE 06/27/2017 4:06/27/2017 4: 27am Urine Blood NEGATIVE NEGATIVE 06/27/2017 4:06/27/2017 4:27am Urine WBC 0-5 /HPF 0-5 06/27/2017 4:06/27/2017 4:36am Urine RBC 0-5 /HPF 0-5 06/27/2017 4:06/27/2017 4:36am Urine Bacteria NONE /HPF NONE 06/27/2017 4:06/27/2017 4:36am Urine Epithelial Cells RARE /LPF NONE 06/27/2017 4:06/27/2017 4: 36am Urine Random Total Protein < 6.8 mg/dL 1-14 06/27/2017 4:2017 2:53pm Urine Creatinine 20.49 mg/dL L 63-166 06/27/2017 4:06/28/2017 2: 53pm Urine Protein/Creatinine Ratio 0.00 06/27/2017 4:06/28/2017 2: 53pm Sodium Level 131 mmol/L L 136-145 07/05/2017 6:35am 07/05/2017 7:51am Potassium Level 3.6 mmol/L 3.5-5.1 07/05/2017 6:35am 07/05/2017 7:51am Chloride Level 97 mmol/L L 98-107 07/05/2017 6:35am 07/05/2017 7:51am Carbon Dioxide Level 20 mmol/L L 22-29 07/05/2017 6:35am 07/05/2017 7: 51am Anion Gap 17.6 mmol/L H 8-16 07/05/2017 6:35am 07/05/2017 7:51am Blood Urea Nitrogen 56 mg/dL H 7-07/05/2017 6:35am 07/05/2017 7:51am Creatinine 1.54 mg/dL H 0.72-1.25 07/05/2017 6:35am 07/05/2017 7:51am BUN/Creatinine Ratio 36 H 6-25 07/05/2017 6:35am 07/05/2017 7:51am Estimat Glomerular Filtration Rate 43 ML/MIN L 60- 07/05/2017 6:35am 7:51am Ranges were taken from the National Kidney Disease Education Program and the National Kidney Foundation literature. Reference ranges: 60 or greater: Normal 16-59 (for 3 consecutive months): Chronic kidney disease 15 or less: Kidney failure Glucose Level 99 mg/dL 74-118 07/05/2017 6:35am 07/05/2017 7:51am Calcium Level 8.4 mg/dL 8.4-10.2 07/05/2017 6:35am 07/05/2017 7:51am Lactic Acid Level 14.3 MG/DL 4.5-19.8 06/27/2017 4:05am 06/27/2017 4: 32am Magnesium Level 2.0 MG/DL 1.3-2.1 07/05/2017 6:35am 07/05/2017 8:18am Total Bilirubin 0.8 mg/dL 0.2-1.2 07/05/2017 6:35am 07/05/2017 7:51am Direct Bilirubin 0.4 mg/dL 0.0-0.5 07/05/2017 6:35am 07/05/2017 8:18am Aspartate Amino Transf (AST/SGOT) 436 IU/L H 5-34 07/05/2017 6:35am 7:51am Alanine Aminotransferase (ALT/SGPT) 2223 IU/L H 0-55 07/05/2017 6:35am 07/05/2017 7:51am Total Protein 5.6 g/dL L 6.5-8.1 07/05/2017 6:35am 07/05/2017 7:51am Albumin 2.8 g/dL L 3.5-5.0 07/05/2017 6:35am 07/05/2017 7:51am Globulin 2.8 g/dL 2.3-3.5 07/05/2017 6:35am 07/05/2017 7:51am Albumin/Globulin Ratio 1.0 0.8-2.0 07/05/2017 6:35am 07/05/2017 7: 51am Alkaline Phosphatase 194 IU/L H 40-150 07/05/2017 6:35am 07/05/2017 7: 51am Triglycerides Level 116 MG/DL 0-149 06/29/2017 6:00am 06/29/2017 7: 02am Cholesterol Level 147 MD/DL 0-199 06/29/2017 6:00am 06/29/2017 7:02am Less than 200 mg/dL Low Risk 201 - 239 mg/dL Borderline Risk 240 mg/dl and greater High Risk LDL Cholesterol 80 MG/DL 60-130 06/29/2017 6:00am 06/29/2017 7:02am HDL Cholesterol 44 MG/DL 40-60 06/29/2017 6:00am 06/29/2017 7:02am Cholesterol/HDL Ratio 3.3 L 3.9-4.7 06/29/2017 6:00am 06/29/2017 7: 02am B-Type Natriuretic Peptide 2906.1 pg/mL H 0-100 06/28/2017 6:00am 2017 7:00am Creatine Kinase 188 IU/L 30-200 06/28/2017 6:00am 06/28/2017 6:56am Creatine Kinase MB 56.90 ng/mL H 0-5.0 06/28/2017 6:00am 06/28/2017 6: 56am Troponin I 9.969 ng/mL H 0-0.300 06/28/2017 6:00am 06/28/2017 6:56am Elevated result called to DIEUDONNE BERNAL RN at 0655 on 06/28/17 by Quoc Quezada. Hepatitis A IgM Antibody Negative 07/03/2017 3:30pm 07/05/2017 9: 35am Hepatitis B Surface Antigen Negative 07/03/2017 3:30pm 07/05/2017 9 :35am Hepatitis B Core IgM Antibody Negative 07/03/2017 3:30pm 2017 9:35am Hepatitis C Antibody <0.1 07/03/2017 3:30pm 07/05/2017 9:35am Reference Range: 0.0 - 0.9 s/co ratio Negative: < 0.8 Indeterminate: 0.8 - 0.9 Positive: > 0.9 The CDC recommends that a positive HCV antibody result be followed up with a HCV Nucleic Acid Amplification test (763750). [place] [address] Dir: Rolando Hinojosa MD For inquiries, the physician may contact Branch: [phone] Lab: [phone] Microbiology Results Procedure Source Organism/Result Collection Date/Time Result Date/Time Result Status Blood Culture Blood NO GROWTH AFTER 5 DAYS, FINAL REPORT 06/27/2017 4:05am 07/02/2017 4:16am Final Procedures Procedure Status Date Provider(s) X-ray of chest, two views Active 06/11/17 CHARITO HUA MD Ultrasound, renal Active 06/28/17 NAKUL GOODEN US abdomen limited Active 07/04/17 MARCO A WILLS MD Encounters Encounter Location Arrival/Admit Date Discharge/Depart Date Attending Provider Discharged Inpatient [facility] 06/27/17 5:43am 07/05/17 9:50am CARLOS ALBERTO PEARCE MD Discharged Inpatient [facility] 06/11/17 12:14pm 11:00am CARLOS ALBERTO PEARCE MD
[2017-07-06] MEDS ORDERED: SODIUM CHLORIDE 0.9% 1000ML 1,000 ML ONE (16:13)
[2017-07-06 16:37] LABS: BASOPHILS # (AUTO) 0.1 (0.0-0.1); BASOPHILS % 0.8 % (0.0-1.0); EOSINOPHILS % 0.1 % (0.0-6.0); HEMATOCRIT 32.8 % (38.2-49.6); LYMPHOCYTES # (AUTO) 0.7 (1.0-3.2); LYMPHOCYTES % 6.3 % (18.0-39.1); MEAN CORPUSCULAR HGB CONC 33.5 g/dL (31-35); MEAN CORPUSCULAR VOLUME 95.3 fL (81-99); MONOCYTES # (AUTO) 0.7 (0.2-0.8); MONOCYTES % 6.7 % (4.4-11.3); NEUTROPHILS # (AUTO) 8.1 (2.1-6.9); NEUTROPHILS % 79.6 % (38.7-80.0); PLATELET COUNT 155 x10e3/uL (140-360); RED BLOOD COUNT 3.44 x10e6/uL (4.3-5.7); RED CELL DISTRIBUTION WIDTH 13.9 % (11.7-14.4)
[2017-07-06] MEDS ORDERED: NOREPINEPHRINE BITARTRATE/ NS 250 ML ONE (16:40)
[2017-07-06 16:42] LABS: INR 2.91; PROTHROMBIN TIME 28.6 seconds (11.9-14.5)
[2017-07-06 16:49] LABS: ALBUMIN 2.8 g/dL (3.5-5.0); ALBUMIN/GLOBULIN RATIO 1.1 (0.8-2.0); ANION GAP 24.8 mmol/L (8-16); CALCIUM 8.4 mg/dL (8.4-10.2); CREATININE, SERUM 2.83 mg/dL (0.72-1.25)
[2017-07-06 16:52] LABS: POTASSIUM 5.8 mmol/L (3.5-5.1)
[2017-07-06] MEDS ORDERED: SODIUM CHLORIDE 0.9% 1000ML 1,000 ML IV ONE (17:15)
[2017-07-06] MEDS ORDERED: NOREPINEPHRINE BITARTRATE/ NS 250 ML IV PRN (17:15)
--- NOTE | 2017-07-06 17:30 | Diagnostic Imaging Report ---
PROCEDURE: A single AP view of the chest. COMPARISON: Chest x-ray 07/02/2017 INDICATIONS: STATUS POST INTUBATION/CENTRAL LINE FINDINGS: Lines/tubes: Endotracheal tube tip is 2.5 cm above the shakila. Left IJ central line with tip in the left brachiocephalic vein near the SVC. Median sternotomy wires and mediastinal clips related to previous CABG. Nonspecific tubing overlying the left chest. Lungs: The lungs are moderately inflated. Diffuse airspace opacities with perihilar and basilar predominance consistent pulmonary edema. Pleura: Likely small bilateral pleural effusions secondary to positioning. A left apical pleural thickening, likely tracking effusion. Heart and mediastinum: The heart and the mediastinum are unremarkable. Atherosclerotic calcifications in the aorta. Bones: No acute bony abnormality. IMPRESSION: 1. Diffuse pulmonary edema. 2. Endotracheal tube tip is 2.5 cm above the shakila. 3. Left IJ central line tip is in the left brachiocephalic vein. Dictated by: Mario De Paz M.D. on 07/06/2017 at 17:30 Electronically approved by: Mario De Paz M.D. on 07/06/2017 at 17:30
[2017-07-06 17:31] LABS: BAND NEUTROPHILS % (MANUAL) 17 %; EOSINOPHILS % (MANUAL) 3 % (0-7); LYMPHOCYTES % (MANUAL) 7 % (19-48); METAMYELOCYTES % (MANUAL) 1 % (0-0); MONOCYTES % (MANUAL) 10 % (3.4-9.0); MYELOCYTES % (MANUAL) 2 % (0-0); NEUTROPHILS % (MANUAL) 60 % (40-74); NUCLEATED RED BLOOD CELLS 27; PLATELET ESTIMATE ADEQUATE; PLATELET MORPHOLOGY COMMENT NORMAL; RBC MORPHOLOGY COMMENT ABNORMAL
[2017-07-06 17:36] LABS: ANISOCYTOSIS SLIGHT; POIKILOCYTOSIS SLIGHT; POLYCHROMASIA SL
[2017-07-06] MEDS ORDERED: NOREPINEPHRINE 8 MG/D5W 250 ML 250 ML IV PRN (17:45)
[2017-07-06 17:50] LABS: ABG HCO3 17 mmol/L (23-28); ABG PCO2 47 mmHg (41-51); ABG PH 7.16 (7.31-7.41); ABG PO2 492 mmHg (80-105)
[2017-07-06] MEDS ORDERED: DEXTROSE 50% SYRINGE 50 ML IV STA (17:57)
[2017-07-06] MEDS ORDERED: SODIUM BICARBONATE 8.4% 50 ML VIAL IV STA ×2 (17:57→18:01)
[2017-07-06] MEDS ORDERED: CALCIUM GLUCONATE 10% INJ 9.3 MEQ in SODIUM CHLORIDE 0.9% 100 ML 100 ML IV ONE (18:00)
[2017-07-06] MEDS ORDERED: WATER STERILE 10 ML VIAL ONE (18:12)
[2017-07-06] MEDS ORDERED: VECURONIUM BROMIDE FOR INJ 20 MG VIAL ONE (18:12)
[2017-07-06] MEDS ORDERED: ONDANSETRON HCL INJ 2 MG/ML VIAL IV PRN (18:15)
[2017-07-06] MEDS ORDERED: SODIUM CHLORIDE FLUSH 10 ML SYR INJ PRN (18:15)
[2017-07-06] MEDS ORDERED: ASPIRIN 81 MG CHEW TAB PO ONE (18:15)
[2017-07-06] MEDS ORDERED: FAMOTIDINE 20 MG TAB PO SCH (18:15)
[2017-07-06] MEDS ORDERED: CALCIUM GLUCONATE 10% INJ 0.465 MEQ/ML VIAL ONE ×2 (18:30→20:44)
[2017-07-06] MEDS ORDERED: ASPIRIN 300 MG SUPP PR ONE (18:36)
[2017-07-06] MEDS ORDERED: SODIUM CHLORIDE 0.9% 100 ML ONE ×2 (18:44→20:46)
[2017-07-06 18:46] LABS: CREATINE KINASE MB 61.5 ng/mL (0-5.0)
[2017-07-06] MEDS ORDERED: VECURONIUM BROMIDE FOR INJ 20 MG VIAL IV STA (19:07)
[2017-07-06] MEDS ORDERED: MIDAZOLAM HCL 2 MG/2 ML VIAL IV STA ×2 (19:07)
[2017-07-06] MEDS ORDERED: DONEPEZIL HCL10 MG (20:34)
[2017-07-06] MEDS ORDERED: SIMVASTATIN20 MG (20:34)
[2017-07-06] MEDS ORDERED: LOPRESSOR25 MG PO (20:34)
[2017-07-06] MEDS ORDERED: RANEXA500 MG (20:34)
[2017-07-06] MEDS ORDERED: FUROSEMIDE40 MG (20:34)
[2017-07-06] MEDS ORDERED: POTASSIUM CHLO20 ME1 (20:34)
[2017-07-06] MEDS ORDERED: CLOPIDOGREL75 MG (20:34)
[2017-07-06] MEDS ORDERED: PANTOPRAZOLE SO40 MG (20:34)
[2017-07-06] MEDS ORDERED: LISINOPRIL5 MG (20:35)
[2017-07-06] MEDS ORDERED: ASPIRIN325 MG PO (20:36)
[2017-07-06] MEDS ORDERED: ALLOPURINOL300 MG PO (20:36)
[2017-07-07] VITALS (37 sets, daily range): BP systolic 82–132; BP diastolic 55–81
[2017-07-07 01:03] LABS: CREATININE, SERUM 2.82 mg/dL (0.72-1.25)
[2017-07-07 05:33] LABS: BASOPHILS # (AUTO) 0.1 (0.0-0.1); BASOPHILS % 0.9 % (0.0-1.0); EOSINOPHILS % 0.1 % (0.0-6.0); HEMATOCRIT 34.1 % (38.2-49.6); HEMOGLOBIN 11.3 g/dL (14.0-18.0); LYMPHOCYTES # (AUTO) 0.5 (1.0-3.2); LYMPHOCYTES % 4.8 % (18.0-39.1); MEAN CORPUSCULAR HEMOGLOBIN 31.7 pg (28-32); MEAN CORPUSCULAR HGB CONC 33.1 g/dL (31-35); MEAN CORPUSCULAR VOLUME 95.8 fL (81-99); MONOCYTES # (AUTO) 0.5 (0.2-0.8); MONOCYTES % 4.3 % (4.4-11.3); NEUTROPHILS # (AUTO) 8.6 (2.1-6.9); NEUTROPHILS % 81.3 % (38.7-80.0); PLATELET COUNT 154 x10e3/uL (140-360); RED BLOOD COUNT 3.56 x10e6/uL (4.3-5.7); RED CELL DISTRIBUTION WIDTH 13.9 % (11.7-14.4)
[2017-07-07] MEDS ORDERED: LORAZEPAM INJ 2 MG/ML VIAL IV PRN (05:45)
[2017-07-07] MEDS ORDERED: MORPHINE SULFATE 2 MG/ML SYR IV PRN (05:45)
[2017-07-07 05:48] LABS: INR 3.19; PARTIAL THROMBOPLASTIN TIME 37.1 seconds (23.8-35.5); PROTHROMBIN TIME 30.7 seconds (11.9-14.5)
[2017-07-07 05:56] LABS: ALBUMIN 2.6 g/dL (3.5-5.0); ALBUMIN/GLOBULIN RATIO 1.2 (0.8-2.0); ANION GAP 21.2 mmol/L (8-16); CALCIUM 7.7 mg/dL (8.4-10.2); CREATININE, SERUM 2.96 mg/dL (0.72-1.25); POTASSIUM 5.2 mmol/L (3.5-5.1)
[2017-07-07 06:01] LABS: CREATINE KINASE MB 47.2 ng/mL (0-5.0)
--- NOTE | 2017-07-07 06:15 | Diagnostic Imaging Report ---
EXAM: CHEST SINGLE (PORTABLE), AP 1 view INDICATION: Intubated COMPARISON: AP view of the chest July 06, 2017 FINDINGS: LINES/TUBES: The endotracheal tube terminates 3 cm above the shakila. Stable position of left internal jugular vein central line. LUNGS: Improving aeration of the lungs. PLEURA: No effusions or pneumothorax. HEART AND MEDIASTINUM: Normal size and contour. Stable median sternotomy wires and mediastinal clips. BONES AND SOFT TISSUES: No acute findings. IMPRESSION: Improving aeration of the lungs. Signed by: Dr. Yeni Wang M.D. on 07/07/2017 6:12 AM
--- NOTE | 2017-07-07 07:43 | Consultation ---
DATE OF CONSULTATION: CARDIOLOGY CONSULTATION CHIEF COMPLAINT: Cardiac arrest. HISTORY OF PRESENT ILLNESS: The patient is an 82 year old with a long medical history, who had out of hospital cardiac arrest, and was brought to the emergency room at [facility] by emergency medical services. The patient has been unresponsive with no movement. PAST MEDICAL HISTORY: Significant for: 1. Dementia. 2. Congestive heart failure with low ejection fraction of 25%. 3. Previous coronary artery bypass grafting. 4. Recent cardiac catheterization demonstrating occlusion of the saphenous vein graft to the right coronary artery, occlusion of the saphenous vein graft to the circumflex artery, and an 80% stenosis of the left anterior descending artery after the attachment of the internal mammary artery graft. SOCIAL HISTORY: The patient lives with his at home. The patient does not drink. Does not smoke. FAMILY HISTORY: There is a known family history of coronary artery disease. PHYSICAL EXAMINATION GENERAL: The patient is intubated and unresponsive. VITAL SIGNS: Included a blood pressure of 96/56, temperature 98.8, pulse 73. HEENT: The patient's cranium was normocephalic and atraumatic. NECK: Supple. No jugular venous distention. No carotid bruits. CHEST: Demonstrated rhonchi bilaterally. CARDIAC: Demonstrated a normal S1 and S2 with a 2/6 systolic murmur. ABDOMEN: Demonstrated good bowel sounds. No tenderness. No masses. EXTREMITIES: With no clubbing, no cyanosis and no edema. NEUROLOGIC: The patient was unresponsive and unable to follow any commands with no movement. IMPRESSION: The patient is an 82 year old with cardiac arrest, most likely cardiac in etiology. The patient's prognosis is very poor. He has not had any neurologic response at this time. Discussion about withdrawal of care has been initiated with the family. Job#: [id number] RI cc:CARLOS ALBERTO PEARCE MD
[2017-07-07 08:21] LABS: CHOL/HDL RATIO 4.4 (3.9-4.7); MAGNESIUM 2.1 MG/DL (1.3-2.1); PHOSPHORUS 6.9 MG/DL (2.3-4.7)
[2017-07-07] MEDS ORDERED: FAMOTIDINE 20 MG/2 ML VIAL IV SCH (09:00)
[2017-07-07] MEDS ORDERED: FAMOTIDINE 10MG/ML 20ML VIAL IV SCH (09:00)
--- NOTE | 2017-07-07 09:10 | Consultation ---
DATE OF CONSULTATION: July 06, 2017 CARDIOLOGY CONSULTATION INDICATION: ST elevation myocardial infarction. Mr. Lovell is an 82-year-old gentleman with known severe coronary artery disease, prior coronary artery bypass surgery with only a patent left internal mammary artery bypass, not amenable to PCI or redo CABG. His recent coronary angiogram was done by Dr. Rodrigues. He came to the emergency room of [facility] obtunded, bradycardic, continued to proceed to have asystole for which CPR was performed. The patient was intubated. He was given epinephrine with return to spontaneous circulation. He was then sedated without any neurological function when I assessed him. His electrocardiogram at the time of initial presentation showed a left bundle-branch block concerning for myocardial infarction. PAST MEDICAL HISTORY: As listed above. Additionally, the patient has chronic kidney disease. SOCIAL HISTORY: Unobtainable. FAMILY HISTORY: Unobtainable. REVIEW OF SYSTEMS: Unobtainable. PHYSICAL EXAMINATION VITALS: Afebrile. Heart rate 78. Blood pressure is 84/40. O2 sats 98%. CARDIOVASCULAR: Regular rhythm. A 3/6 systolic murmur. LUNGS: A few crackles with rhonchi. ABDOMEN: Soft. Bowel sounds are hypoactive. EXTREMITIES: 1+ edema. Electrocardiogram shows sinus rhythm with left bundle-branch block. Echocardiogram done at the bedside shows an LV ejection fraction of approximately 20% with moderate sclerosis of the aortic valve. LABS: Pending. ASSESSMENT 1. Asystole, cardiac arrest in the setting of severe coronary artery disease, as well as a severe systolic heart failure. 2. Yyljy-tj-oyrktam systolic heart failure. 3. Cardiogenic shock. RECOMMENDATIONS: Mr. Lovell's EKGs is probably a stable finding. I reviewed his prior EKGs, states he has a left bundle-branch block. This finding is not consistent with ST elevation myocardial infarction. At this point, hypothermia protocol can be initiated for witnessed cardiac arrest. Dopamine for heart rate and blood pressure support as tolerated. Ventilator management for critical care and routine ICU care. The patient has been cared for by Dr. Rodrigues in the recent past. We will return his further cardiac care to his service. I discussed with Dr. Castano and I thank him for this consultation. Job#: [id number] CQ
[2017-07-07 09:48] LABS: BAND NEUTROPHILS % (MANUAL) 7 %; LYMPHOCYTES % (MANUAL) 6 % (19-48); METAMYELOCYTES % (MANUAL) 2 % (0-0); MONOCYTES % (MANUAL) 5 % (3.4-9.0); MYELOCYTES % (MANUAL) 3 % (0-0); NEUTROPHILS % (MANUAL) 74 % (40-74); NUCLEATED RED BLOOD CELLS 8
[2017-07-07 09:57] LABS: ANISOCYTOSIS MODERATE; PLATELET ESTIMATE SLIGHTLY DECREASED; PLATELET MORPHOLOGY COMMENT FEW GIANT; POLYCHROMASIA FEW; RBC MORPHOLOGY COMMENT ABNORMAL
[2017-07-07 09:58] LABS: POIKILOCYTOSIS MODERATE; TARGET CELLS FEW
== END 2017-07-07 09:48 | disposition expired | DRG 208 ==
LOC: ER 15:58 → ERHOLD 18:27 → ICU 21:16
PROVIDERS: ADMIT Internal Medicine; ATTEND Internal Medicine
PROC: 0BH17EZ Insertion of Endotracheal Airway into Trachea, Via Natural or Artificial Opening (ICD-10-PCS; principal; 2017-07-06)
PROC: 5A1935Z Respiratory Ventilation, Less than 24 Consecutive Hours (ICD-10-PCS; principal; 2017-07-06)
PROC: 02HV33Z Insertion of Infusion Device into Superior Vena Cava, Percutaneous Approach (ICD-10-PCS; 2017-07-06)
DX: J96.01 Acute respiratory failure with hypoxia (principal); I50.23 Acute on chronic systolic (congestive) heart failure; K72.00 Acute and subacute hepatic failure without coma; I13.0 Hypertensive heart and chronic kidney disease with heart failure and stage 1 through stage 4 chronic kidney disease, or unspecified chronic kidney disease; E87.2 Acidosis; I46.2 Cardiac arrest due to underlying cardiac condition; R57.0 Cardiogenic shock; I50.84 End stage heart failure; Z66 Do not resuscitate; N18.3 Chronic kidney disease, stage 3 (moderate); Z51.5 Encounter for palliative care; I25.10 Atherosclerotic heart disease of native coronary artery without angina pectoris; Z95.1 Presence of aortocoronary bypass graft; J44.9 Chronic obstructive pulmonary disease, unspecified; F03.90 Unspecified dementia, unspecified severity, without behavioral disturbance, psychotic disturbance, mood disturbance, and anxiety
CPT/HCPCS: 31500; 36415; 36555; 51700; 71045; 80048; 80053; 80061; 82550; 82553; 82805; 82948; 83735; 83880; 84100; 84484; 85025; 85610; 85730; 92950; 93005; 93306; 94002; 94003; 99285; J0610; J2060; J2270; J7030; J7050; J7799